=== PATIENT | female | born 1930 | race Caucasian/White ===

== ENCOUNTER 2017-04-20 12:30 | Inpatient (IN) | payer MEDICARE, MEDICAID ==
[2017-04-20 12:35] VITALS: BMI 16.8
--- NOTE | 2017-04-20 12:53 | CT ---
PROCEDURE: CT HEAD WITHOUT CONTRAST. HISTORY: Code Stroke COMPARISON: None available. TECHNIQUE: Axial computed tomography images were obtained through the head/brain without intravenous contrast. Radiation dose: Total exam DLP = 823.33 mGy-cm. This CT exam was performed using one or more of the following dose reduction techniques: Automated exposure control, adjustment of the mA and/or kV according to patient size, and/or use of iterative reconstruction technique. FINDINGS: HEMORRHAGE: No intracranial hemorrhage. BRAIN: No mass effect or edema. Mild diffuse age-appropriate cerebral atrophy. VENTRICLES: Unremarkable. No hydrocephalus. CALVARIUM: Unremarkable. PARANASAL SINUSES: Unremarkable as visualized. No significant inflammatory changes. MASTOID AIR CELLS: Unremarkable as visualized. No inflammatory changes. OTHER FINDINGS: None. IMPRESSION: Normal CT of the Head. No evidence of acute infarct. No intracranial hemorrhage. No intracranial mass. The results of this examination was discussed, by telephone, with Dr. Walsh at 12:47 p.m. on 04/20/2017.
[2017-04-20] MEDS ORDERED: Sodium Chloride 0.9% 1,000 ML IV ONE (13:02)
[2017-04-20] MEDS ORDERED: Piperacillin/Tazobact 3.375 gm 100 ML IVPB STA (13:02)
[2017-04-20 13:12] LABS: VENOUS BLOOD GAS BASE EXCESS 1.2 mmol/L (0.0-2.0); VENOUS BLOOD GAS PCO2 44 mmHg (40-60); VENOUS BLOOD PH 7.39 (7.32-7.43)
[2017-04-20] MEDS ORDERED: Sodium Chloride 0.9% 1,000 ML ONE ×2 (13:16→19:11)
[2017-04-20 13:25] LABS: BASO % 0.3 % (0.0-2.0); EOS % 0.2 % (0.0-4.0); HEMATOCRIT 35.3 % (34.0-47.0); LYMPH # 0.6 K/uL (1.0-4.3); LYMPH % 5.2 % (20.0-40.0); MEAN CELL VOLUME 92.5 fL (81.0-99.0); MEAN CORPUSCULAR HEMOGLOBIN 30.3 pg (27.0-31.0); MEAN CORPUSCULAR HGB CONC 32.8 g/dL (33.0-37.0); MEAN PLATELET VOLUME 7.9 fL (7.2-11.7); MONO # 0.5 K/uL (0.0-0.8); MONO % 4.5 % (0.0-10.0); PLATELET COUNT 356 K/uL (130-400); RED CELL DISTRIBUTION WIDTH 15.1 % (11.5-14.5); WHITE BLOOD COUNT 11.2 K/uL (4.8-10.8)
--- NOTE | 2017-04-20 13:25 | C.PDOC ---
History Of Present Illness 86 y/o female brought to ED by EMS for incomprehensible speech and falling from bed. As per Daughter at 7am patient was given thyroid medicine and was "fine" but at 11am patient was found faced down on floor and was only able to tell " she wanted to go to the bathroom and legs lost strength". Daughter reports patient's speech became incomprehensible and brought to ED for further evaluation. Upon arrival and evaluation code stroke was activated. No other complaints at this time. Time Seen by Provider: 04/20/17 12:34 Chief Complaint (Nursing): Altered Mental Status History Per: Family (Daughter) History/Exam Limitations: Clinical Condition, Language Barrier Onset/Duration Of Symptoms: Mins Onset Of Symptoms: <3 Hours Current Symptoms Are (Timing): Still Present Past Medical History Reviewed: Historical Data, Nursing Documentation, Vital Signs Vital Signs: Last Vital Signs Temp 97.6 F 04/25/17 16:00 Pulse 86 04/25/17 16:00 Resp 18 04/25/17 16:00 BP 129/73 04/25/17 16:00 Pulse Ox 96 04/27/17 12:39 - Medical History PMH: COPD, Gastritis, Osteoporosis Surgical History: Cholecystectomy - [facility] Procedures NEBULIZER THERAPY (04/18/15) Family History: States: Unknown Family Hx - Social History Hx Alcohol Use: No Hx Substance Use: No Physical Exam - Physical Exam Appears: Well, No Acute Distress Skin: Normal Color, Warm, Dry Eye(s): bilateral: Normal Inspection, PERRL, EOMI Nose: Normal Throat: Normal Neck: Normal Cardiovascular: Rhythm Regular Respiratory: Normal Breath Sounds Gastrointestinal/Abdominal: Normal Exam Back: Normal Inspection Extremity: Normal ROM Neurological/Psych: Normal Speech, Normal Cognition, Normal Cranial Nerves, Other ((+)moving all extremities (+)mildly confused) ED Course And Treatment - Laboratory Results Result Diagrams: 04/25/17 06:55 04/25/17 06:55 ECG: Interpreted By Me, Viewed By Me ECG Rhythm: Sinus Tachycardia Rate From EC (bpm) O2 Sat by Pulse Oximetry: 96 (RA) Pulse Ox Interpretation: Normal NIHSS Stroke Scale - Date/Time Evaluation Performed Date Performed: 04/20/17 Time Performed: 18:43 When Was NIHSS Performed: Baseline - How Severe is the Stoke Level of Consciousness: 1=Drowsy LOC to Questions: 0=Both comments correct LOC to commands: 0=Obeys both correctly Best Gaze: 0=Normal Visual: 0=No visual loss Facial: 0=Normal Motor Arm - Left: 0=No drift Motor Arm - Right: 0=No drift Motor Leg - Left: 0=No drift Motor Leg - Right: 0=No drift Limb Ataxia: 0=Absent Sensory: 0=Normal Best Language: 1=Mild to moderate aphasia Dysarthia: 0=Normal articulation Extinction & Inattention (Neglect): 0=Normal, no object Score: 2 Severity Of Stroke: 1-4= Minor Stroke rTPA Inclusion/Exclusion - Refusal of Treatment Patient Refused Treatment: No - Inclusion Criteria for Altepase Patient is 18 years or Older: Yes Clinical DX Ischemic Stroke Cause Neurological Deficit: No Time of Onset Established Less Than 270 Mins Before TX Begin: Yes Risk/Benefit Discussed With Patient/Family Member Present: Yes Medical Decision Making Medical Decision Making: code stroke/ams- r/o intrcranial/stroke/sepsis- labs imaging pending case discussed with dr cronin sap functional analyst neurology. advises not tpa candidate. inital ekg concerning for aflutter. cardizem given with improvement of rate. case discussed with dr qureshi. requests lovenox. case discussed with dr tian. accepts for admission. Disposition - Disposition Disposition: HOSPITALIZED Disposition Time: 04:00 Condition: FAIR - Clinical Impression Clinical Impression: Atrial flutter, UTI (urinary tract infection), Altered mental status - Scribe Statement The provider has reviewed the documentation as recorded by the Scribe Goznalez Burden All medical record entries made by the Scribe were at my direction and personally dictated by me. I have reviewed the chart and agree that the record accurately reflects my personal performance of the history, physical exam, medical decision making, and the department course for this patient. I have also personally directed, reviewed, and agree with the discharge instructions and disposition. Decision To Admit - Pt Status Changed To: Hospital Disposition Of: Inpatient - Admit Certification Admit to Inpatient:: After my assessment, the patient will require hospitalization for at least two midnights. This is because of the severity of symptoms shown, intensity of services needed, and/or the medical risk in this patient being treated as an outpatient. - InPatient: Physician Admission Certification:: aflutter, needs lovenox, ams, needs antibitoics - . Bed Request Type: Telemetry Admitting Physician: Abbie Richards Patient Diagnosis: Atrial flutter, UTI (urinary tract infection), Altered mental status
[2017-04-20 13:29] LABS: INR 1.2
[2017-04-20 13:33] LABS: ALKALINE PHOSPHATASE 88 U/L (38-126); ALT/SGPT 16 U/L (9-52); AST/SGOT 27 U/L (14-36); BILIRUBIN,TOTAL 0.7 mg/dL (0.2-1.3); BLOOD UREA NITROGEN 17 mg/dL (7-17); CALCIUM 9.8 mg/dl (8.6-10.4); CARBON DIOXIDE 26 mmol/L (22-30); CHLORIDE 101 mmol/L (98-107); CHOLESTEROL 124 mg/dL (0-199); GFR AFRICAN-AMERICAN > 60; GLUCOSE,RANDOM 90 mg/dL (65-105); POTASSIUM 4.4 mmol/L (3.6-5.2); SODIUM 139 mmol/L (132-148); TOTAL PROTEIN 8.9 g/dL (6.3-8.3)
[2017-04-20 13:36] LABS: ALB/GLOB RATIO 0.9 (1.0-2.1)
[2017-04-20 13:50] LABS: NEUTROPHIL 84 % (50-75); TOTAL CELLS COUNTED 100
--- NOTE | 2017-04-20 14:08 | RAD ---
HISTORY: code stroke COMPARISON: No prior. FINDINGS: LUNGS: Extensive diffuse interstitial infiltrate common nonspecific. Sahara consolidation in right apex. The possible pneumonia. Cannot rule out neoplasm. Followup advised. PLEURA: No significant pleural effusion identified, no pneumothorax apparent. CARDIOVASCULAR: Normal. OSSEOUS STRUCTURES: No significant abnormalities. VISUALIZED UPPER ABDOMEN: Normal. OTHER FINDINGS: None. IMPRESSION: Extensive diffuse interstitial infiltrate with sahara consolidation in right apex common nonspecific. Consider correlation with chest CT examination.
[2017-04-20 14:11] LABS: RBC URINE 38 /hpf (0-3); URINE BILIRUBIN NEGATIVE (NEGATIVE); URINE BLOOD 3+ (NEGATIVE); URINE COLOR Yellow (YELLOW); URINE GLUCOSE (UA) NORMAL (Normal); URINE KETONE TRACE mg/dL (NEGATIVE); URINE LEUKOCYTE ESTERASE 3+ Leu/uL (Negative); URINE PROTEIN 1+ mg/dL (NEGATIVE); URINE UROBILINOGEN NORMAL mg/dL (0.2-1.0); WBC URINE 179 /hpf (0-5)
[2017-04-20] MEDS ORDERED: Piperacillin/Tazobact 3.375 gm 100 ML IVPB ONE ×3 (14:16→20:08)
[2017-04-20] MEDS ORDERED: Vancomycin 1 GM 1 GM/250 ML BAG IVPB ONE (14:50)
[2017-04-20] MEDS ORDERED: Iohexol 350mg/ml 100 ML ONE (15:54)
--- NOTE | 2017-04-20 16:56 | CT ---
PROCEDURE: CT Chest, Abdomen and Pelvis without intravenous contrast HISTORY: Cough and abdominal pain. COMPARISON: None. TECHNIQUE: Unenhanced study. Neither oral nor intravenous contrast administered. Sensitivity and specificity for acute inflammatory processes limited by the absence of oral and intravenous contrast. Radiation dose: Total exam DLP = 264.70 mGy-cm. This CT exam was performed using one or more of the following dose reduction techniques: Automated exposure control, adjustment of the mA and/or kV according to patient size, and/or use of iterative reconstruction technique. FINDINGS: CT CHEST WITHOUT CONTRAST: LUNGS: Interstitial lung disease primarily honeycomb pattern, diffuse and moderate in degree. Mass lesion anterior segment left upper lobe 3.4 x 5.2 cm. Adjacent masslike density extending towards the right hilum ill-defined without tissue border it from the adjacent main pulmonary artery. This constellation of findings likely represents neoplasm. Adjacent to the right upper lobe mass are pulmonary parenchymal findings alveolar likely pneumonitis. No evidence of postobstructive pneumonitis, of segmental and subsegmental bronchi are clear. MEDIASTINUM: Unremarkable. Normal caliber aorta and pulmonary arterial trunk. Normal size heart. LYMPH NODES: Adenopathy in the right hilum and mediastinum difficult characterize in the absence of intravenous contrast. PLEURA: Unremarkable. No pneumothorax. No pleural fluid. BONES: Unremarkable. OTHER FINDINGS: None. CT ABDOMEN AND PELVIS: LIVER: Unremarkable. No gross lesion or ductal dilatation. GALLBLADDER AND BILE DUCTS: Status post cholecystectomy. No abnormality is seen in the gallbladder fossa. PANCREAS: Unremarkable. No gross lesion or ductal dilatation. SPLEEN: Unremarkable. ADRENALS: Unremarkable. No mass. KIDNEYS AND URETERS: Right hydronephrosis, hydroureter. The distal course of the right ureter is difficult to follow, there is no distal ureteral or urinary bladder wall abnormality to account for this finding. Left kidney in ureter: Punctate nonobstructing left renal calculi. Left ureter normal in caliber and course. VASCULATURE: Calcified nonaneurysmal abdominal aorta. BOWEL: Unremarkable. No obstruction. No gross mural thickening. APPENDIX: Normal appendix. PERITONEUM: Unremarkable. No free fluid. No free air. LYMPH NODES: Unremarkable. No enlarged lymph nodes. BLADDER: Markedly distended. Dependent bladder calculus 13 x 15 mm. REPRODUCTIVE: Surgically absent uterus. Dystrophic calcifications in the cervix. . BONES: No acute fracture. Grade 2 anterolisthesis L5-S1. Associated spondylolysis. OTHER FINDINGS: None. IMPRESSION: 1. Solid mass right upper lobe. 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 Separate tumor burden in the right hilum and mediastinum difficult to further characterize in the absence of intravenous contrast. 2. Right upper lobe pneumonitis. 3. Moderate -severe interstitial lung disease primarily honeycombing. Underlying findings suggestive of bronchiectasis also identified. 4. Unilateral, right hydronephrosis, hydroureter. Markedly distended urinary bladder with solitary intraluminal bladder calculus. Additional benign and/or incidental findings described above.
[2017-04-20] MEDS ORDERED: Enoxaparin 150 mg Syringe SC STA (17:07)
[2017-04-20] MEDS ORDERED: Enoxaparin 60 mg Syringe SC STA (17:36)
[2017-04-20] MEDS: Sodium Chloride 0.45% 1,000 ML IV SCH (19:17)
[2017-04-20 20:32] LABS: T4 11.6 ug/dL (5.5-11.0)
--- NOTE | 2017-04-20 20:35 | CP.PCM.HP ---
<Homa Mcneal - Last Filed: 04/20/17 20:56> History of Present Illness - History of Present Illness History of Present Illness: HPI: Patient is an 86F with PMH of pulmonary fibrosis, lupus, and osteoporosis who presented to the ED with her daughter, Yaima, for AMS. History was obtained by Yaima. She says she found the patient this morning at 11:45 on the floor of their home, weak and diaphoretic. Patient was awake and alert but confused and asking to be helped to the bathroom because she needed to urinate. Patient's daughter says the patient has been having to go more frequently. Patient can usually ambulate without assistance per her daughter but she was unable to get herself to the bathroom without help. After this the daughter laid her in bed and said she began talking nonsense. She brought her to the ED when this happened and said since then her mother has improved about 80%. Patient's daughter says she only received 2 medications today. One was her levothyroxine and the other was flexeril. Patient received the flexeril after recent ER visit for b/l shoulder pain. The daughter gave it this morning because her mother was complaining of right flank/back pain. Patient admits to sore throat with cough productive of white phlegm which is not new to her 2/2 pulomary fibrosis. Patient also admits to back and joint pain due to osteoporosis. Patient sees her primary care doctor (Dr. Joe Mooney) monthly and has noted a weight loss of 3lbs/month recently as well as decreased appetite. Patient is currently having difficulty swallowing. Patient denies fever, chills, headache, dizziness, change in vision, abdominal pain, nausea, vomiting, diarrhea, blood in urine or stool, dysuria, leg swelling, recent illness or travel, or sick contacts. PMH: pulmonary fibrosis, lupus, osteoporosis, hypothyroidism Meds: * cyclobenzaprine 10 mg PO TID PRN * Levothyroxine 100 mcg PO QD * Memantine 10 mg PO BID * Hydroxycholorquine 200 mg PO QD * Folic acid 1 mg QD PSH: Cholecystectomy Allergies: NKDA FamHx: denies SocHx: Former smoker (2 pk/wk x30 yrs), denies alcohol and drug use Present on Admission - Present on Admission Any Indicators Present on Admission: No Review of Systems - Review of Systems All systems: reviewed and no additional remarkable complaints except (as per HPI ) Past Patient History - Past Medical History & Family History Past Medical History?: Yes - Past Social History Smoking Status: Former Smoker - CARDIAC Hx Cardiac Disorders: No - PULMONARY Hx Chronic Obstructive Pulmonary Disease (COPD): Yes - NEUROLOGICAL Hx Neurological Disorder: No - HEENT Hx HEENT Problems: No - RENAL Hx Chronic Kidney Disease: No - ENDOCRINE/METABOLIC Hx Endocrine Disorders: No - HEMATOLOGICAL/ONCOLOGICAL Hx Blood Disorders: Yes (SLE) - INTEGUMENTARY Hx Dermatological Problems: No - MUSCULOSKELETAL/RHEUMATOLOGICAL Hx Osteoporosis: Yes - GASTROINTESTINAL Hx Gastritis: Yes - GENITOURINARY/GYNECOLOGICAL Hx Genitourinary Disorders: No - PSYCHIATRIC Hx Substance Use: No - SURGICAL HISTORY Hx Cholecystectomy: Yes - ANESTHESIA Hx Anesthesia: Yes Hx Anesthesia Reactions: No Meds Allergies/Adverse Reactions: Allergies Allergy/AdvReac Type Severity Reaction Status Date / Time No Known Allergies Allergy Verified 04/20/17 12:35 Physical Exam - Constitutional Appears: Non-toxic, No Acute Distress, Cachectic - Head Exam Head Exam: ATRAUMATIC, NORMAL INSPECTION, NORMOCEPHALIC - Eye Exam Eye Exam: EOMI - ENT Exam ENT Exam: Mucous Membranes Moist - Respiratory Exam Respiratory Exam: Clear to Auscultation Bilateral, NORMAL BREATHING PATTERN - Cardiovascular Exam Cardiovascular Exam: REGULAR RHYTHM, +S1, +S2. absent: Bradycardia, Tachycardia , Systolic Murmur - GI/Abdominal Exam GI & Abdominal Exam: Normal Bowel Sounds, Soft, Tenderness (suprapubic and right flank ). absent: Distended - Extremities Exam Extremities exam: Positive for: normal inspection, pedal pulses present. Negative for: pedal edema, tenderness - Back Exam Back exam: CVA tenderness (R). absent: paraspinal tenderness, rash noted, vertebral tenderness - Neurological Exam Neurological exam: Alert, CN II-XII Intact - Psychiatric Exam Psychiatric exam: Normal Affect, Normal Mood - Skin Skin Exam: Dry, Intact, Normal Color, Warm Results - Vital Signs Recent Vital Signs: Last Vital Signs Temp 100.2 F H 04/20/17 13:00 Pulse 105 H 04/20/17 19:32 Resp 22 04/20/17 19:32 BP 149/77 04/20/17 19:32 Pulse Ox 98 04/20/17 19:32 - Labs Result Diagrams: 04/20/17 13:15 04/20/17 13:15 Labs: Laboratory Results - last 24 hr 04/20/17 19:59 NT-Pro-B Natriuret Pep 892 Assessment & Plan - Assessment and Plan (Free Text) Assessment: UTI with Cystolith * Leukocytosis 11.2, 100.2 rectal temp * Consult urology (Dr. Villeda) - recs appreciated * Raines Cath * Zosyn 3.375mg Q6 and Vanco 1g QD started * 1/2 NS @ 100 * F/U BC and UC AMS * Neurology consult (Dr. Mccoy) - recs appreciated * Dysphagia - NPO * F/U MRI brain without contrast * F/U carotid echo Atrial Flutter * Cardiology conult (Dr. Bustillo) * Lovenox 44 mg SC Q12 Hypothyroidism * Holding home med: Levothyroxine 100mcg QD Pulmonary fibrosis * Advair Q12 * Solumedrol 125 x1 and then 40 Q8 PPX * Pepcid 20 mg IV Q12 * Hold home meds 2/2 dysphagia <CalliePeter H - Last Filed: 04/21/17 07:40> Results - Vital Signs Recent Vital Signs: Last Vital Signs Temp 97.5 F L 04/21/17 04:28 Pulse 81 04/21/17 04:28 Resp 20 04/21/17 04:28 BP 96/57 L 04/21/17 04:28 Pulse Ox 97 04/21/17 04:28 - Labs Result Diagrams: 04/21/17 03:01 04/21/17 03:01 Labs: Laboratory Results - last 24 hr 04/20/17 04/20/17 04/20/17 19:59 21:18 21:44 WBC RBC Hgb Hct MCV MCH MCHC RDW Plt Count MPV Neut % (Auto) Lymph % (Auto) Howard % (Auto) Eos % (Auto) Baso % (Auto) Neut # Lymph # Howard # Eos # Baso # Neutrophils % (Manual) Lymphocytes % (Manual) Monocytes % (Manual) Platelet Estimate Sodium Potassium Chloride Carbon Dioxide Anion Gap BUN Creatinine Est GFR ( Amer) Est GFR (Non-Af Amer) POC Glucose (mg/dL) 92 Random Glucose Calcium Total Creatine Kinase 163 H CK-MB (Mass) 1.42 Troponin I, Quant 0.0420 NT-Pro-B Natriuret Pep 892 Triglycerides Cholesterol LDL Cholesterol Direct HDL Cholesterol Thyroxine (T4) 11.6 H TSH 3rd Generation 0.02 L 04/21/17 04/21/17 04/21/17 03:01 03:01 03:01 WBC 17.0 H D RBC 3.35 L Hgb 10.0 L Hct 30.9 L MCV 92.3 MCH 29.9 MCHC 32.4 L RDW 14.8 H Plt Count 259 MPV 7.8 Neut % (Auto) 94.7 H Lymph % (Auto) 3.3 L Howard % (Auto) 1.8 Eos % (Auto) 0.1 Baso % (Auto) 0.1 Neut # 16.1 H Lymph # 0.6 L Howard # 0.3 Eos # 0.0 Baso # 0.0 Neutrophils % (Manual) 92 H Lymphocytes % (Manual) 7 L Monocytes % (Manual) 1 Platelet Estimate Normal Sodium 140 Potassium 3.5 L Chloride 104 Carbon Dioxide 23 Anion Gap 17 BUN 16 Creatinine 0.7 Est GFR ( Amer) > 60 Est GFR (Non-Af Amer) > 60 POC Glucose (mg/dL) Random Glucose 114 H Calcium 8.2 L Total Creatine Kinase 156 H 138 H CK-MB (Mass) 0.62 Troponin I, Quant 0.0510 NT-Pro-B Natriuret Pep Triglycerides 39 D Cholesterol 88 LDL Cholesterol Direct 39 HDL Cholesterol 36 Thyroxine (T4) TSH 3rd Generation 04/21/17 06:23 WBC RBC Hgb Hct MCV MCH MCHC RDW Plt Count MPV Neut % (Auto) Lymph % (Auto) Howard % (Auto) Eos % (Auto) Baso % (Auto) Neut # Lymph # Howard # Eos # Baso # Neutrophils % (Manual) Lymphocytes % (Manual) Monocytes % (Manual) Platelet Estimate Sodium Potassium Chloride Carbon Dioxide Anion Gap BUN Creatinine Est GFR ( Amer) Est GFR (Non-Af Amer) POC Glucose (mg/dL) 125 H Random Glucose Calcium Total Creatine Kinase CK-MB (Mass) Troponin I, Quant NT-Pro-B Natriuret Pep Triglycerides Cholesterol LDL Cholesterol Direct HDL Cholesterol Thyroxine (T4) TSH 3rd Generation Attending/Attestation - Attestation I have personally seen and examined this patient.: Yes I have fully participated in the care of the patient.: Yes I have reviewed all pertinent clinical information: Yes Notes (Text): Medical attending: Patient was seen and examined by me. Agree with the above note by the resident The patient's family member was present at bedside and helped us with the events. As reported above in the medical technologist hematology note, the patient was noted to be found on the ground with weakness. On arrival in the ER a code stroke was called and a CT scan was done. This CT did not show any acute bleeding. She was found to have a rapid HR which was felt to be atrial flutter/fib and cardizem was given for rate control. ER had spoken with cardiology. There are orders for lovenox SC BID already written before we had arrived as it is possible that she had a thromboembolic event. An echo and carotid has been ordered. Also MRI as well. On exam patient HR had improved. She was awake and alert and answering questions slowly however appearing weak. She also looked dry on our exam. She was able to stick her tounge at me, squeeze my hands, raise both arm and legs for greater than 5 seconds. However she did not follow commands to move her eyes or try to make a smile. She was found to have a UA that suggested a UTI. She has been started on IVF. The CT scan showed a very distended bladders, as well as hydronephrosis over the right kidney. There appears to be a stone also in the bladder as well. The family did report she had flank pain earlier in the day. CT scan had been done and showed also a large right lung perhilar mass which was reported as suspicious of a malignancy. Per review of previous notes from the past - other physicians had been worried if she could have had TB and she was worked up for this with a negative quanterferon gold and also with 3 consequtively negative stains and then cultures of AFB. I explained this to the family that for tonight and tommorow we would have to treat the UTI as well as see if she had a CVA or not. Then in following next days will be better able to assess this finding that is suspicious for malignancy. There is also a history of extensive history of pulmonary fibrosis as well. The family knows she takes breathing medication however they don't readily have it with them. Will start on solumedrol IV as well as Advair 250/50. For now try to avoid beta agonist inhalers/nebulizers due to the fast HR thank you Faizan Ledesma
[2017-04-20 20:46] LABS: THYROID STIMULATING HORMONE 0.02 mIU/L (0.46-4.68)
[2017-04-20] MEDS: Enoxaparin 60 mg Syringe SC SCH (22:24)
[2017-04-21] MEDS: Piperacill/Tazo 3.375gm in Dex 3.375 GM/50 ML BAG IVPB SCH ×4 (01:15→20:38)
[2017-04-21 03:07] LABS: BASO % 0.1 % (0.0-2.0); EOS % 0.1 % (0.0-4.0); HEMATOCRIT 30.9 % (34.0-47.0); LYMPH # 0.6 K/uL (1.0-4.3); LYMPH % 3.3 % (20.0-40.0); MEAN CELL VOLUME 92.3 fL (81.0-99.0); MEAN CORPUSCULAR HEMOGLOBIN 29.9 pg (27.0-31.0); MEAN CORPUSCULAR HGB CONC 32.4 g/dL (33.0-37.0); MEAN PLATELET VOLUME 7.8 fL (7.2-11.7); MONO # 0.3 K/uL (0.0-0.8); MONO % 1.8 % (0.0-10.0); PLATELET COUNT 259 K/uL (130-400); RED CELL DISTRIBUTION WIDTH 14.8 % (11.5-14.5)
[2017-04-21 03:16] LABS: BLOOD UREA NITROGEN 16 mg/dL (7-17); CALCIUM 8.2 mg/dl (8.6-10.4); CARBON DIOXIDE 23 mmol/L (22-30); CHLORIDE 104 mmol/L (98-107); CHOLESTEROL 88 mg/dL (0-199); GFR AFRICAN-AMERICAN > 60; GLUCOSE,RANDOM 114 mg/dL (65-105); POTASSIUM 3.5 mmol/L (3.6-5.2); SODIUM 140 mmol/L (132-148)
[2017-04-21 04:27] LABS: NEUTROPHIL 92 % (50-75); TOTAL CELLS COUNTED 100
[2017-04-21] MEDS: Sodium Chloride 0.45% 1,000 ML IV SCH ×2 (05:16→15:47)
[2017-04-21] MEDS ORDERED: Pantoprazole 40 mg EC Tab PO SCH (10:00)
[2017-04-21] MEDS: Enoxaparin 60 mg Syringe SC SCH ×2 (10:41→21:55)
[2017-04-21] MEDS: Fluticasone-Salmeterol 250-50mcg Diskus INH SCH ×2 (13:22→19:52)
--- NOTE | 2017-04-21 14:02 | MRI ---
PROCEDURE: MRI BRAIN WITHOUT CONTRAST HISTORY: alter mental status, patient has tacycarida, COMPARISON: Comparison is made to the previous CT dated 04/20/2017 TECHNIQUE: Multiplanar, multisequence MR images of the brain were obtained without intravenous contrast enhancement. FINDINGS: Study is somewhat limited due to patient's motion. HEMORRHAGE: None DWI: No evidence of an acute or early subacute infarction. BRAIN PARENCHYMA: No mass effect or edema. Mild volume loss is noted. There are few scattered nonspecific periventricular and subcortical white matter foci of hyperintense T2 and FLAIR signal may be related to chronic microvascular ischemic disease. VENTRICLES: Unremarkable. No hydrocephalus. CRANIUM: Unremarkable. ORBITS: Grossly unremarkable. PARANASAL SINUSES/MASTOIDS: Clear VASCULAR SYSTEM: Skull base flow voids intact. OTHER FINDINGS: None. IMPRESSION: Somewhat limited study due to patient's motion. No evidence of acute intracranial hemorrhage mass effect or midline shift. No evidence of acute or subacute infarction. Mild volume loss.
--- NOTE | 2017-04-21 14:18 | CP.PCM.PN ---
Subjective - Date & Time of Evaluation Date of Evaluation: 04/21/17 Time of Evaluation: 13:00 - Subjective Subjective: Patient was seen and examined by me. Family members present She appears FAR more awake and alert today. She is able to answer questions and is now able to swallow safely. This is a big change from yesterday. When I saw her yesterday in the ER she was somnulent, confused, and not following all commands. Today all commands followed and also on exam we had her stand and walk with us and she was able to do so without difficulty. We changed her to heart heathly diet. She also had an MRI, still pending echo and carotid studies. It seems her alter mental status was/is from infection as the patient does have pre-liminary gram negative rods in two blood cultures as well as in the urine. We stopped the vancomycin and then added on Primaxin with the Zosyn she was already. I realize this is not a common combination so later when sensitivities return probably can stop the Zosyn. Continue with the IVF, she does not look as dehydrated today as yesterday Objective - Vital Signs/Intake and Output Vital Signs (last 24 hours): Temp Pulse Resp BP Pulse Ox 97.2 F L 74 20 113/64 97 04/21/17 10:28 04/21/17 10:28 04/21/17 10:28 04/21/17 10:28 04/21/17 10:28 Intake and Output: 04/21/17 04/21/17 06:59 18:59 Intake Total 1250 Output Total 800 Balance 450 - Medications Medications: Current Medications Enoxaparin Sodium (Lovenox) 44 mg SC Q12 [facility] Last Admin: 04/21/17 10:41 Dose: 44 mg Famotidine (Pepcid) 20 mg IVP Q12 [facility] Last Admin: 04/21/17 10:40 Dose: 20 mg Sodium Chloride (Sodium Chloride 0.45%) 1,000 mls @ 100 mls/hr IV .Q10H [facility] Last Admin: 04/21/17 05:16 Dose: 100 mls/hr Piperacillin Sod/Tazobactam Sod (Zosyn 3.375 Gm Iv Premix) 3.375 gm in 50 mls @ 100 mls/hr IVPB Q6H [facility] Last Admin: 04/21/17 08:15 Dose: 100 mls/hr Imipenem/Cilastatin Sodium 500 (mg/ Sodium Chloride) 100 mls @ 100 mls/hr IVPB Q6H [facility] Last Admin: 04/21/17 10:41 Dose: 100 mls/hr Methylprednisolone (Solu-Medrol) 40 mg IV Q8 [facility] Last Admin: 04/21/17 05:10 Dose: 40 mg Fluticasone/Salmeterol (Advair Diskus 250/50) 1 puff INH RQ12 [facility] Last Admin: 04/21/17 13:22 Dose: Not Given - Labs Labs: 04/21/17 03:01 04/21/17 03:01 PT 13.2 SECONDS (9.7-12.2) H 04/20/17 13:15 INR 1.2 04/20/17 13:15 APTT 33 SECONDS (21-34) 04/20/17 13:15 - Constitutional Appears: Well, No Acute Distress - Head Exam Head Exam: NORMAL INSPECTION, NORMOCEPHALIC - Eye Exam Eye Exam: EOMI, Normal appearance - ENT Exam ENT Exam: Mucous Membranes Moist - Respiratory Exam Respiratory Exam: Clear to Ausculation Bilateral, NORMAL BREATHING PATTERN - Cardiovascular Exam Cardiovascular Exam: REGULAR RHYTHM - GI/Abdominal Exam GI & Abdominal Exam: Soft, Normal Bowel Sounds - Neurological Exam Neurological Exam: Alert, Awake, Oriented x3 Neuro motor strength exam: Left Upper Extremity: 5, Right Upper Extremity: 5, Left Lower Extremity: 5, Right Lower Extremity: 5 - Skin Skin Exam: Normal Color, Warm Assessment and Plan - Assessment and Plan (Free Text) Assessment: UTI and hydronephrosis - suspect she just passed a stone 04/21: Urine culture is prelimanry gram negative growth. Changed IV abx to also include Primaxin IV Q6hrs. Her bladder showed a lot of urinary retention yesterday and a follow was started. * Consult urology (Dr. Villeda) - recs appreciated * Raines Cath * 1/2 NS @ 100 * F/U BC and UC AMS - likey from urosepsis 04/21: Per family now back to her baseline mental state. She is awake, alert, following all commands. On exam was able to stand and walk. She had MRI this morning. Pending Echo * Neurology consult (Dr. Mccoy) - recs appreciated * F/U MRI brain without contrast * F/U carotid echo Atrial Flutter/atrial fibrillation * Cardiology conult (Dr. Bustillo) * Lovenox 44 mg SC Q12 Hypothyroidism 04/21: TSH very low, may represent hyper thyroid or overmedication. Recheck TSH again and T3 and T4 * Holding home med: Levothyroxine 100mcg QD Pulmonary fibrosis 04/21: Will decrease solumedrol to 40 BID * Advair Q12 * Solumedrol 125 x1 and then 40 Q8 PPX * Pepcid 20 mg IV Q12
--- NOTE | 2017-04-21 15:47 | CP.PCM.CON ---
History of Present Illness - History of Present Illness History of Present Illness: Mrs. Clements is an 86-year-old woman with a pertinent past medical history of baseline dementia, who now presents with a UTI and changes in mental status that were noted by her daughter. She improved somewhat by the time she was brought to the ED. Today, the patient has no complaints, but continues to have some confusion (which may be her baseline). MRI of the brain was done and did not show any acute findings. Review of Systems - Review of Systems All systems: reviewed and no additional remarkable complaints except Past Patient History - Past Medical History & Family History Past Medical History?: Yes - Past Social History Smoking Status: Former Smoker - CARDIAC Hx Cardiac Disorders: No - PULMONARY Hx Chronic Obstructive Pulmonary Disease (COPD): Yes - NEUROLOGICAL Hx Neurological Disorder: No - HEENT Hx HEENT Problems: No - RENAL Hx Chronic Kidney Disease: No - ENDOCRINE/METABOLIC Hx Endocrine Disorders: No - HEMATOLOGICAL/ONCOLOGICAL Hx Blood Disorders: Yes (SLE) - INTEGUMENTARY Hx Dermatological Problems: No - MUSCULOSKELETAL/RHEUMATOLOGICAL Hx Osteoporosis: Yes - GASTROINTESTINAL Hx Gastritis: Yes - GENITOURINARY/GYNECOLOGICAL Hx Genitourinary Disorders: No - PSYCHIATRIC Hx Substance Use: No - SURGICAL HISTORY Hx Cholecystectomy: Yes - ANESTHESIA Hx Anesthesia: Yes Hx Anesthesia Reactions: No Meds Allergies/Adverse Reactions: Allergies Allergy/AdvReac Type Severity Reaction Status Date / Time No Known Allergies Allergy Verified 04/20/17 12:35 - Medications Medications: Current Medications Enoxaparin Sodium (Lovenox) 44 mg SC Q12 [facility] Last Admin: 04/21/17 10:41 Dose: 44 mg Famotidine (Pepcid) 20 mg IVP Q12 [facility] Last Admin: 04/21/17 10:40 Dose: 20 mg Sodium Chloride (Sodium Chloride 0.45%) 1,000 mls @ 100 mls/hr IV .Q10H [facility] Last Admin: 04/21/17 05:16 Dose: 100 mls/hr Piperacillin Sod/Tazobactam Sod (Zosyn 3.375 Gm Iv Premix) 3.375 gm in 50 mls @ 100 mls/hr IVPB Q6H [facility] Last Admin: 04/21/17 14:35 Dose: 100 mls/hr Imipenem/Cilastatin Sodium 500 (mg/ Sodium Chloride) 100 mls @ 100 mls/hr IVPB Q6H [facility] Last Admin: 04/21/17 10:41 Dose: 100 mls/hr Methylprednisolone (Solu-Medrol) 40 mg IV Q8 [facility] Last Admin: 04/21/17 14:34 Dose: 40 mg Fluticasone/Salmeterol (Advair Diskus 250/50) 1 puff INH RQ12 [facility] Last Admin: 04/21/17 13:22 Dose: Not Given Physical Exam - Constitutional Appears: Well - Head Exam Head Exam: ATRAUMATIC, NORMAL INSPECTION, NORMOCEPHALIC - Eye Exam Eye Exam: EOMI, Normal appearance, PERRL - ENT Exam ENT Exam: Mucous Membranes Moist, Normal Exam - Neck Exam Neck exam: Positive for: Normal Inspection - Respiratory Exam Respiratory Exam: Clear to Auscultation Bilateral, NORMAL BREATHING PATTERN - Cardiovascular Exam Cardiovascular Exam: REGULAR RHYTHM, +S1, +S2 - GI/Abdominal Exam GI & Abdominal Exam: Normal Bowel Sounds, Soft. absent: Tenderness - Rectal Exam Rectal Exam: Deferred - Extremities Exam Extremities exam: Positive for: normal inspection - Back Exam Back exam: NORMAL INSPECTION - Neurological Exam Neurological exam: Alert, CN II-XII Intact, Normal Gait, Reflexes Normal Additional comments: Oriented to person and place, but not time. Has some insight into her memory deficits. Follows commands appropriately with no focal deficits. - Psychiatric Exam Psychiatric exam: Normal Affect, Normal Mood - Skin Skin Exam: Dry, Intact, Normal Color, Warm Results - Vital Signs Recent Vital Signs: Last Vital Signs Temp 97.2 F L 04/21/17 10:28 Pulse 86 04/21/17 13:15 Resp 20 04/21/17 10:28 BP 113/64 04/21/17 10:28 Pulse Ox 97 04/21/17 10:28 - Labs Result Diagrams: 04/21/17 03:01 04/21/17 03:01 Labs: Laboratory Results - last 24 hr 04/20/17 04/20/17 04/20/17 19:59 21:18 21:44 WBC RBC Hgb Hct MCV MCH MCHC RDW Plt Count MPV Neut % (Auto) Lymph % (Auto) [place] % (Auto) Eos % (Auto) Baso % (Auto) Neut # Lymph # [place] # Eos # Baso # Neutrophils % (Manual) Lymphocytes % (Manual) Monocytes % (Manual) Platelet Estimate Sodium Potassium Chloride Carbon Dioxide Anion Gap BUN Creatinine Est GFR ( Amer) Est GFR (Non-Af Amer) POC Glucose (mg/dL) 92 Random Glucose Calcium Total Creatine Kinase 163 H CK-MB (Mass) 1.42 Troponin I, Quant 0.0420 NT-Pro-B Natriuret Pep 892 Triglycerides Cholesterol LDL Cholesterol Direct HDL Cholesterol Thyroxine (T4) 11.6 H TSH 3rd Generation 0.02 L 04/21/17 04/21/17 04/21/17 03:01 03:01 03:01 WBC 17.0 H D RBC 3.35 L Hgb 10.0 L Hct 30.9 L MCV 92.3 MCH 29.9 MCHC 32.4 L RDW 14.8 H Plt Count 259 MPV 7.8 Neut % (Auto) 94.7 H Lymph % (Auto) 3.3 L [place] % (Auto) 1.8 Eos % (Auto) 0.1 Baso % (Auto) 0.1 Neut # 16.1 H Lymph # 0.6 L [place] # 0.3 Eos # 0.0 Baso # 0.0 Neutrophils % (Manual) 92 H Lymphocytes % (Manual) 7 L Monocytes % (Manual) 1 Platelet Estimate Normal Sodium 140 Potassium 3.5 L Chloride 104 Carbon Dioxide 23 Anion Gap 17 BUN 16 Creatinine 0.7 Est GFR ( Amer) > 60 Est GFR (Non-Af Amer) > 60 POC Glucose (mg/dL) Random Glucose 114 H Calcium 8.2 L Total Creatine Kinase 156 H 138 H CK-MB (Mass) 0.62 Troponin I, Quant 0.0510 NT-Pro-B Natriuret Pep Triglycerides 39 D Cholesterol 88 LDL Cholesterol Direct 39 HDL Cholesterol 36 Thyroxine (T4) TSH 3rd Generation 04/21/17 04/21/17 06:23 12:16 WBC RBC Hgb Hct MCV MCH MCHC RDW Plt Count MPV Neut % (Auto) Lymph % (Auto) [place] % (Auto) Eos % (Auto) Baso % (Auto) Neut # Lymph # [place] # Eos # Baso # Neutrophils % (Manual) Lymphocytes % (Manual) Monocytes % (Manual) Platelet Estimate Sodium Potassium Chloride Carbon Dioxide Anion Gap BUN Creatinine Est GFR ( Amer) Est GFR (Non-Af Amer) POC Glucose (mg/dL) 125 H 144 H Random Glucose Calcium Total Creatine Kinase CK-MB (Mass) Troponin I, Quant NT-Pro-B Natriuret Pep Triglycerides Cholesterol LDL Cholesterol Direct HDL Cholesterol Thyroxine (T4) TSH 3rd Generation Assessment & Plan (1) Toxic metabolic encephalopathy Assessment and Plan: Continue treatment of the underlying cause per the primary team and provide adequate hydration with NS. No further recommendations from a neurological standpoint. Thank you. Status: Acute Priority: Medium
[2017-04-22] MEDS: Piperacill/Tazo 3.375gm in Dex 3.375 GM/50 ML BAG IVPB SCH ×2 (01:25→07:32)
[2017-04-22] MEDS: Sodium Chloride 0.45% 1,000 ML IV SCH ×2 (01:26→21:27)
--- NOTE | 2017-04-22 05:48 | CON ---
REASON FOR CONSULTATION: Atrial flutter. HISTORY OF PRESENT ILLNESS: The patient is 86 years old female who is a former smoker, has a history of pulmonary fibrosis, but not on nasal O2 at home. She was admitted because of fall from bed and incomprehensible speech according to the daughter. The patient has no history of prior stroke in the past and she has a history of hypothyroidism, but the daughter is not aware of any cardiac arrhythmia. In the ER, the patient initial EKG was sinus, subsequently one revealed atrial flutter with 2:1 conduction and the patient received IV Cardizem. The patient denies any chest pain at this time. SOCIAL HISTORY: The patient is a former smoker. MEDICATIONS: Home medications include Synthroid 100 mcg once a day, Plaquenil 200 mg daily, Namenda 10 mg once a day, folic acid 1 mg once a day, Advair inhaler twice a day. REVIEW OF SYSTEMS: No fever or chills. No vomiting or diarrhea. No hemoptysis. The daughter has reported significant loss of weight. PHYSICAL EXAMINATION: GENERAL: The patient is an elderly female who appears emaciated in no apparent respiratory distress. VITAL SIGNS: Blood pressure 115/64, heart rate 74, temperature 97.2 and respirations 20. HEENT: Staring look. NECK: No JVD. CHEST: Bilateral rhonchi and minimal dry crepitations. HEART: S1 and S2 regular. ABDOMEN: Soft. EXTREMITIES: Significant loss of wasting. LABORATORY DATA: SMA-7: Sodium 140, potassium 3.5, chloride 104, CO2 of 23, glucose 114, BUN 16 and creatinine 0.7. Two sets of troponins are negative. Lipid profile is within normal limits. T4 is 11.6. TSH level is below normal, 0.02. INR is 1.2. Head CT scan without contrast: Normal study, no evidence of acute infarct, no intracranial hemorrhage or mass. Carotid Doppler and brain MRI were performed, the report is still pending. ASSESSMENT: 1. Paroxysmal atrial flutter. 2. Hyperthyroidism. 3. Pulmonary fibrosis. 4. Rule out cerebrovascular accident. RECOMMENDATIONS: Continue current imipenem at 500 mg a day q. 6 hours. Continue therapeutic subcutaneous Lovenox at 40 mg twice a day, Solu-Medrol 40 mg intravenous q. 8 hours, Zosyn at 3.375 g intravenous daily. Discontinue Synthroid and consider endocrinology consult. I did initially start Lopressor 25 mg twice a day; however, I was told by the nurse that the patient did not pass the swallow eval; however, once the patient is cleared for oral medications, beta-ton therapy should be initiated. I will review the echocardiograph study performed today. Prasanna Bustillo MD
[2017-04-22] MEDS: Fluticasone-Salmeterol 250-50mcg Diskus INH SCH ×2 (07:39→19:34)
[2017-04-22 09:42] LABS: HEMATOCRIT 31.5 % (34.0-47.0); LYMPH # 0.6 K/uL (1.0-4.3); LYMPH % 4.5 % (20.0-40.0); MEAN CELL VOLUME 92.9 fL (81.0-99.0); MEAN CORPUSCULAR HEMOGLOBIN 30.2 pg (27.0-31.0); MEAN CORPUSCULAR HGB CONC 32.6 g/dL (33.0-37.0); MEAN PLATELET VOLUME 8.4 fL (7.2-11.7); MONO # 0.1 K/uL (0.0-0.8); MONO % 0.8 % (0.0-10.0); PLATELET COUNT 263 K/uL (130-400); WHITE BLOOD COUNT 13.6 K/uL (4.8-10.8)
[2017-04-22 09:58] LABS: CHLORIDE 105 mmol/L (98-107)
[2017-04-22 09:59] LABS: POTASSIUM 3.2 mmol/L (3.6-5.2); SODIUM 139 mmol/L (132-148)
[2017-04-22 10:01] LABS: AST/SGOT 29 U/L (14-36); BILIRUBIN,TOTAL 0.6 mg/dL (0.2-1.3); CARBON DIOXIDE 22 mmol/L (22-30); GFR AFRICAN-AMERICAN > 60; TOTAL PROTEIN 7.6 g/dL (6.3-8.3)
[2017-04-22 10:02] LABS: ALKALINE PHOSPHATASE 64 U/L (38-126); ALT/SGPT 11 U/L (9-52); BLOOD UREA NITROGEN 21 mg/dL (7-17); CALCIUM 8.3 mg/dl (8.6-10.4); GLUCOSE,RANDOM 176 mg/dL (65-105); MAGNESIUM 1.9 mg/dL (1.6-2.3); PHOSPHOROUS 2.8 mg/dL (2.5-4.5)
[2017-04-22 10:09] LABS: ALB/GLOB RATIO 0.9 (1.0-2.1)
[2017-04-22] MEDS: Enoxaparin 60 mg Syringe SC SCH ×2 (10:24→21:29)
[2017-04-22 11:27] LABS: NEUTROPHIL 90 % (50-75); TOTAL CELLS COUNTED 100
[2017-04-22 11:28] LABS: LARGE PLATELETS PRESENT; PLATELET CLUMPS PRESENT
[2017-04-22] MEDS ORDERED: Potassium Chloride 20 mEq ER Tab PO STA (11:57)
--- NOTE | 2017-04-22 14:35 | CP.PCM.PN ---
Subjective - Date & Time of Evaluation Date of Evaluation: 04/22/17 Time of Evaluation: 14:30 - Subjective Subjective: Progress note. Attending: Dr. Casarez. Pt seen and examined at bedside. No acute distress. No events overnight. Pt being worked up for UTI with bacteremia and lung mass, as well as hydronephrosis. No current complaints. No fevers, chills, vomiting, diarrhea. Objective - Vital Signs/Intake and Output Vital Signs (last 24 hours): Temp Pulse Resp BP Pulse Ox 97.3 F L 71 20 134/65 100 04/22/17 09:54 04/22/17 09:54 04/22/17 09:54 04/22/17 09:54 04/22/17 09:54 Intake and Output: 04/22/17 04/22/17 06:59 18:59 Intake Total 1890 Output Total 1550 Balance 340 - Medications Medications: Current Medications Enoxaparin Sodium (Lovenox) 44 mg SC Q12 [facility] Last Admin: 04/22/17 10:24 Dose: 44 mg Famotidine (Pepcid) 20 mg IVP Q12 [facility] Last Admin: 04/22/17 10:24 Dose: 20 mg Sodium Chloride (Sodium Chloride 0.45%) 1,000 mls @ 100 mls/hr IV .Q10H [facility] Last Admin: 04/22/17 01:26 Dose: 100 mls/hr Piperacillin Sod/Tazobactam Sod (Zosyn 3.375 Gm Iv Premix) 3.375 gm in 50 mls @ 100 mls/hr IVPB Q6H [facility] Last Admin: 04/22/17 07:32 Dose: 100 mls/hr Imipenem/Cilastatin Sodium 500 (mg/ Sodium Chloride) 100 mls @ 100 mls/hr IVPB Q6H [facility] Last Admin: 04/22/17 10:24 Dose: 100 mls/hr Potassium Chloride (Potassium Chloride 20 Meq/100 Ml) 20 meq in 100 mls @ 50 mls/hr IVPB ONCE ONE Stop: 04/22/17 14:59 Last Admin: 04/22/17 12:22 Dose: 50 mls/hr Methylprednisolone (Solu-Medrol) 40 mg IV Q8 [facility] Last Admin: 04/22/17 14:04 Dose: 40 mg Fluticasone/Salmeterol (Advair Diskus 250/50) 1 puff INH RQ12 [facility] Last Admin: 04/22/17 07:39 Dose: 1 puff - Labs Labs: 04/22/17 09:37 04/22/17 09:37 PT 13.2 SECONDS (9.7-12.2) H 04/20/17 13:15 INR 1.2 04/20/17 13:15 APTT 33 SECONDS (21-34) 04/20/17 13:15 - Constitutional Appears: Non-toxic, No Acute Distress - Head Exam Head Exam: ATRAUMATIC, NORMAL INSPECTION, NORMOCEPHALIC - Eye Exam Eye Exam: EOMI - ENT Exam ENT Exam: Mucous Membranes Moist - Neck Exam Neck Exam: Full ROM, Normal Inspection - Respiratory Exam Respiratory Exam: NORMAL BREATHING PATTERN. absent: Respiratory Distress - Cardiovascular Exam Cardiovascular Exam: +S1, +S2 - GI/Abdominal Exam GI & Abdominal Exam: Soft, Normal Bowel Sounds. absent: Tenderness - Extremities Exam Extremities Exam: Full ROM, Normal Inspection - Neurological Exam Neurological Exam: Alert, Awake, Oriented x3 - Psychiatric Exam Psychiatric exam: Normal Affect, Normal Mood - Skin Skin Exam: Dry, Intact, Normal Color, Warm Assessment and Plan - Assessment and Plan (Free Text) Assessment: UTI/urosepsis -pt has positive urine culture growing klebsiella -pt has 2 positive blood cultures with gram negative rods -ID consulted. recs appreciated. -continue imipenem/cilastatin -continue IV zosyn AMS - likey from urosepsis -pt back to baseline mental status -Dr. Mccoy consulted. recs appreciated -MRI shows no acute changes. Mass in lung -CT scan of chest notes mass in lung. -Pulmonary consult. Dr. Ambrose. recs appreciated. Right hydronephrosis -Dr. Villeda consulted. recs appreciated -continue mauricio catheter Atrial Flutter/atrial fibrillation -cardiology consulted. recs appreciated -pt is on lovenox 44 q 12. Hypothyroidism -TSH low, will need recheck in 1 month -holding home medication Pulmonary fibrosis -continue solumedrol 40 IV q 8 hrs -pulm consult. recs appreciated. GI.DVT ppx continue pepcid continue lovenox discussed with Dr. Casarez.
--- NOTE | 2017-04-22 15:24 | CP.PCM.CON ---
History of Present Illness - History of Present Illness History of Present Illness: dictated Past Patient History - Past Medical History & Family History Past Medical History?: Yes - Past Social History Smoking Status: Former Smoker - CARDIAC Hx Cardiac Disorders: No - PULMONARY Hx Chronic Obstructive Pulmonary Disease (COPD): Yes - NEUROLOGICAL Hx Neurological Disorder: No - HEENT Hx HEENT Problems: No - RENAL Hx Chronic Kidney Disease: No - ENDOCRINE/METABOLIC Hx Endocrine Disorders: No - HEMATOLOGICAL/ONCOLOGICAL Hx Blood Disorders: Yes (SLE) - INTEGUMENTARY Hx Dermatological Problems: No - MUSCULOSKELETAL/RHEUMATOLOGICAL Hx Osteoporosis: Yes - GASTROINTESTINAL Hx Gastritis: Yes - GENITOURINARY/GYNECOLOGICAL Hx Genitourinary Disorders: No - PSYCHIATRIC Hx Substance Use: No - SURGICAL HISTORY Hx Cholecystectomy: Yes - ANESTHESIA Hx Anesthesia: Yes Hx Anesthesia Reactions: No Meds Allergies/Adverse Reactions: Allergies Allergy/AdvReac Type Severity Reaction Status Date / Time No Known Allergies Allergy Verified 04/20/17 12:35 - Medications Medications: Current Medications Enoxaparin Sodium (Lovenox) 44 mg SC Q12 [facility] Last Admin: 04/22/17 10:24 Dose: 44 mg Famotidine (Pepcid) 20 mg IVP Q12 [facility] Last Admin: 04/22/17 10:24 Dose: 20 mg Gentamicin Sulfate (Gentamicin) 60 mg IVPB Q8H [facility] Sodium Chloride (Sodium Chloride 0.45%) 1,000 mls @ 100 mls/hr IV .Q10H [facility] Last Admin: 04/22/17 01:26 Dose: 100 mls/hr Meropenem 1 gm/ Sodium (Chloride) 100 mls @ 100 mls/hr IVPB Q8 [facility] Methylprednisolone (Solu-Medrol) 40 mg IV Q8 [facility] Last Admin: 04/22/17 14:04 Dose: 40 mg Fluticasone/Salmeterol (Advair Diskus 250/50) 1 puff INH RQ12 [facility] Last Admin: 04/22/17 07:39 Dose: 1 puff Results - Vital Signs Recent Vital Signs: Last Vital Signs Temp 97.3 F L 04/22/17 09:54 Pulse 71 04/22/17 09:54 Resp 20 04/22/17 09:54 BP 134/65 04/22/17 09:54 Pulse Ox 100 04/22/17 09:54 - Labs Result Diagrams: 04/22/17 09:37 04/22/17 09:37 Labs: Laboratory Results - last 24 hr 04/21/17 04/21/17 04/22/17 16:21 20:50 06:43 WBC RBC Hgb Hct MCV MCH MCHC RDW Plt Count MPV Neut % (Auto) Lymph % (Auto) [place] % (Auto) Eos % (Auto) Baso % (Auto) Neut # Lymph # [place] # Eos # Baso # Neutrophils % (Manual) Lymphocytes % (Manual) Monocytes % (Manual) Platelet Estimate Plt Clumps, EDTA Large Platelets Anisocytosis (manual) Tear Drop Cells Ovalocytes Sodium Potassium Chloride Carbon Dioxide Anion Gap BUN Creatinine Est GFR ( Amer) Est GFR (Non-Af Amer) POC Glucose (mg/dL) 145 H 143 H 165 H Random Glucose Calcium Phosphorus Magnesium Total Bilirubin AST ALT Alkaline Phosphatase Total Protein Albumin Globulin Albumin/Globulin Ratio 04/22/17 04/22/17 04/22/17 09:37 09:37 11:41 WBC 13.6 H RBC 3.39 L Hgb 10.3 L Hct 31.5 L MCV 92.9 MCH 30.2 MCHC 32.6 L RDW 15.0 H Plt Count 263 MPV 8.4 Neut % (Auto) 94.7 H Lymph % (Auto) 4.5 L [place] % (Auto) 0.8 Eos % (Auto) 0.0 Baso % (Auto) 0.0 Neut # 12.9 H Lymph # 0.6 L [place] # 0.1 Eos # 0.0 Baso # 0.0 Neutrophils % (Manual) 90 H Lymphocytes % (Manual) 9 L Monocytes % (Manual) 1 Platelet Estimate Normal Plt Clumps, EDTA Present Large Platelets Present Anisocytosis (manual) Slight Tear Drop Cells Slight Ovalocytes Slight Sodium 139 Potassium 3.2 L Chloride 105 Carbon Dioxide 22 Anion Gap 15 BUN 21 H Creatinine 0.7 Est GFR ( Amer) > 60 Est GFR (Non-Af Amer) > 60 POC Glucose (mg/dL) 208 H Random Glucose 176 H Calcium 8.3 L Phosphorus 2.8 Magnesium 1.9 Total Bilirubin 0.6 AST 29 ALT 11 Alkaline Phosphatase 64 Total Protein 7.6 Albumin 3.5 Globulin 4.1 H Albumin/Globulin Ratio 0.9 L
[2017-04-22] MEDS ORDERED: Gentamicin 80 mg/2mL Inj. IVPB SCH (15:30)
[2017-04-22] MEDS: Meropenem 1 GM in Sodium Chloride 0.9% 100 ML IVPB SCH (17:09)
--- NOTE | 2017-04-22 21:05 | PN ---
DATE: SUBJECTIVE: The patient denies any dizziness or palpitation. No chest pain. PHYSICAL EXAMINATION: VITAL SIGNS: Blood pressure 134/65, heart rate 71, temperature 97.3, respiration 20. HEENT: Staring look. NECK: No JVD. CHEST: Bilateral coarse crepitations. HEART: S1 and S2 regular. EXTREMITIES: Significant muscle wasting. LABORATORY DATA: Hemoglobin and hematocrit 10.3 and 31.5, white count 15.6, platelet count 263,000. Today's potassium is 3.2, glucose is 176. Brain MRI, no evidence of acute intracranial hemorrhage, mass effect, or midline shift. No evidence of acute or subacute infarct. Chest, abdominal, and pelvis CT scan, solid mass of the right upper lobe. 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 Separate tumor burden in the right hilum and mediastinum, difficult to further characterize in the absence of intervenous contrast. Right upper lobe pneumonitis. Moderate severe interstitial lung disease, primarily honeycombing, underlying bronchiectasis is identified. Unilateral right hydronephrosis, hydroureter, markedly distended urinary bladder with slippery intraluminal bladder calculus. ASSESSMENT: 1. Paroxysmal atrial flutter. 2. Hyperthyroidism. 3. Right upper lobe mass. 4. Pulmonary fibrosis. 5. Right hydronephrosis and right hydroureter secondary to bladder stone. 6. Hypokalemia. CONDITIONS: Case discussed with the primary physician. Continue current IV Imipenem and IV Zosyn. Continue Solu-Medrol 40 mg intravenous q.8h., therapeutic subcutaneous Lovenox is 40 mg twice a day, 20 mEq of IV potassium intravenous started. Prasanna Bustillo MD
[2017-04-23] MEDS: Meropenem 1 GM in Sodium Chloride 0.9% 100 ML IVPB SCH ×3 (02:00→17:20)
--- NOTE | 2017-04-23 05:59 | CON ---
INFECTIOUS DISEASE CONSULTATION DATE: REQUESTING PHYSICIAN: Dr. Faizan Ledesma. HISTORY OF PRESENT ILLNESS: This patient is an 86-year-old female. She has a history of lupus, pulmonary fibrosis, osteoporosis. She was presented to the ED with altered mental status, which was acute change according to the daughter and she was talking nonsense, was unable to go to the bathroom without assistance. Today, she seems very alert and I am asked to follow her because of blood cultures are positive and urine culture is positive and she denies any complaints at this time and the patient does say she has productive cough, which is there because she suffers from pulmonary fibrosis. It was reported and this patient denies any fever or chills right now. Denies any pain. Denies any other complaints. PAST MEDICAL HISTORY: She has history of lupus, osteoporosis, hyperthyroidism, and pulmonary fibrosis. SOCIAL HISTORY: She smoked two pack per day x30 years. She is a former smoker. No history of drug or alcohol abuse. ALLERGIES: SHE IS NOT ALLERGIC TO ANY MEDICINE. PAST SURGICAL HISTORY: Significant for cholecystectomy. MEDICATIONS: She was on cyclobenzaprine, which could probably make her alter, levothyroxine, memantine, hydroxychloroquine 200 mg p.o. daily, and folic acid. REVIEW OF SYSTEMS: She would not void in the commode at the bedside, so the nurses legal executive assistant assisted her to the bathroom and she came back. She looks pretty alert and denies any headaches. No ear, nose, or throat problems right now. No chest pain. No shortness of breath. No abdominal pain. No nausea and no vomiting. She does have past medical history as above, which was noted. PHYSICAL EXAMINATION: GENERAL: She is awake and alert, in no acute respiratory distress. HEENT: Head is atraumatic and normocephalic. Eye movements are unremarkable. Mild pallor present. Tongue is moist. NECK: Supple. JVP is flat. LUNGS: Have some fine crackles on the right base, otherwise, clear. HEART: S1 and S2 is regular. No murmurs present. No guarding present. ABDOMEN: Soft and nontender at this time. No guarding. No rigidity present. EXTREMITIES: Have no edema, clubbing, or cyanosis. She did had mild right CVA tenderness, otherwise, she is moving all her extremities and appears to be in a pleasant mood at this time. LABORATORY DATA: Labs are noted. Labs show; white count yesterday was 17 and today it is 13.6, hemoglobin 10.3, hematocrit 31.5, platelet count is 263, and neutrophils are 90%. Sodium is 139, potassium is 3.2, chloride is 105, CO2 is 22, anion gap is 15, BUN is 21 and creatinine is 0.7. Labs show actually micro branch, blood culture shows Gram-negative rods in two sets and ID and sensitivity of which is pending. Where the urine culture has come back positive, it is Klebsiella pneumoniae, which is ESBL negative, but at this time, since the blood cultures are pending, I would put her on meropenem and gentamicin and also I noted that x-ray was read. She had a CAT scan of the abdomen and pelvis, which was done on her admission, which shows solid mass right upper lobe, finding may represent tumor burden in the right hilum and mediastinum, difficult to characterize in the absence of IV contrast and she has a right upper lobe pneumonitis, which may be post obstructive, [id number] interstitial lung disease, which we already know about and she has a unilateral right hydronephrosis, hydroureter, distended urinary bladder with solitary intraluminal bladder calculus and there are no benign findings, so she has a bladder calculus, which is 13 x 15 mm and that is why she probably has right hydronephrosis also and has septicemia with gram-negative rods and Klebsiella. PLAN: We will put her on meropenem and gentamicin at this time and we will wait for the evaluation, which is Dr. Villeda. He is going to see and order an echocardiogram and we will follow. Denise Melton MD
[2017-04-23 07:32] LABS: HEMATOCRIT 35.3 % (34.0-47.0); LYMPH # 0.8 K/uL (1.0-4.3); LYMPH % 7.2 % (20.0-40.0); MEAN CELL VOLUME 91.5 fL (81.0-99.0); MEAN CORPUSCULAR HGB CONC 32.8 g/dL (33.0-37.0); MEAN PLATELET VOLUME 8.2 fL (7.2-11.7); MONO # 0.4 K/uL (0.0-0.8); MONO % 3.2 % (0.0-10.0); NRBC % 0.1 % (0.0-2.0); PLATELET COUNT 304 K/uL (130-400); RED CELL DISTRIBUTION WIDTH 14.9 % (11.5-14.5); WHITE BLOOD COUNT 11.3 K/uL (4.8-10.8)
--- NOTE | 2017-04-23 07:40 | CP.PCM.PN ---
<Bhavna Tate - Last Filed: 04/23/17 17:48> Subjective - Date & Time of Evaluation Date of Evaluation: 04/23/17 Time of Evaluation: 07:00 - Subjective Subjective: Medicine Progress Note: Patient was seen and examined at bedside in the AM. Patient states she knows she is in the hospital and she states it is 2017. She denies pain and states she would like to walk around. She states she usually walks down her street. Patient states she is eating and denies nausea or vomiting. Objective - Vital Signs/Intake and Output Vital Signs (last 24 hours): Temp Pulse Resp BP Pulse Ox 97.9 F 77 18 146/69 99 04/22/17 15:43 04/23/17 00:00 04/22/17 15:43 04/22/17 15:43 04/22/17 15:43 Intake and Output: 04/23/17 04/23/17 06:59 18:59 Intake Total 2100 Output Total 3100 Balance -1000 - Medications Medications: Current Medications Enoxaparin Sodium (Lovenox) 44 mg SC Q12 [facility] Last Admin: 04/22/17 21:29 Dose: 44 mg Famotidine (Pepcid) 20 mg IVP Q12 [facility] Last Admin: 04/22/17 21:27 Dose: 20 mg Sodium Chloride (Sodium Chloride 0.45%) 1,000 mls @ 100 mls/hr IV .Q10H [facility] Last Admin: 04/22/17 21:27 Dose: 100 mls/hr Meropenem 1 gm/ Sodium (Chloride) 100 mls @ 100 mls/hr IVPB Q8H [facility] Last Admin: 04/23/17 02:00 Dose: 100 mls/hr Gentamicin Sulfate 60 mg/ (Sodium Chloride) 101.5 mls @ 101.5 mls/hr IVPB Q8H [facility] Last Admin: 04/23/17 01:00 Dose: 101.5 mls/hr Methylprednisolone (Solu-Medrol) 40 mg IV Q8 [facility] Last Admin: 04/23/17 06:03 Dose: 40 mg Fluticasone/Salmeterol (Advair Diskus 250/50) 1 puff INH RQ12 [facility] Last Admin: 04/22/17 19:34 Dose: 1 puff - Labs Labs: 04/23/17 07:19 04/22/17 09:37 PT 13.2 SECONDS (9.7-12.2) H 04/20/17 13:15 INR 1.2 04/20/17 13:15 APTT 33 SECONDS (21-34) 04/20/17 13:15 - Constitutional Appears: No Acute Distress, Cachectic - Head Exam Head Exam: ATRAUMATIC, NORMAL INSPECTION, NORMOCEPHALIC - Eye Exam Eye Exam: EOMI, Normal appearance, PERRL Pupil Exam: NORMAL ACCOMODATION - ENT Exam ENT Exam: Mucous Membranes Moist - Respiratory Exam Respiratory Exam: Decreased Breath Sounds, NORMAL BREATHING PATTERN - Cardiovascular Exam Cardiovascular Exam: REGULAR RHYTHM, RRR, +S1, +S2 - GI/Abdominal Exam GI & Abdominal Exam: Soft, Normal Bowel Sounds. absent: Tenderness - Extremities Exam Extremities Exam: Normal Inspection. absent: Pedal Edema, Tenderness - Neurological Exam Neurological Exam: Alert, Awake, Oriented x3 - Psychiatric Exam Psychiatric exam: Normal Affect, Normal Mood - Skin Skin Exam: Normal Color, Warm Assessment and Plan - Assessment and Plan (Free Text) Assessment: 1.) UTI * Consult urology Dr. Villeda --> help appreciated * ID Consult: Dr. Melton --> help appreciated * Raines Cath - removed 04/23 * bladder scan at 9pm * Urine culture: Klebsiella Pneumoniae * Blood culture: Klebsiella Pneumoniae * continue Gentamicin started 04/23 * continue Meropenem started 04/22 2.) Lung Mass * Chest x-ray: Extensive diffuse interstitial infiltrate with sahara consolidation in right apex common nonspecific. Consider correlation with chest CT examination. * Chest/Abdomen/Pelvis CT: 1. Solid mass right upper lobe. 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 Separate tumor burden in the right hilum and mediastinum difficult to further characterize in the absence of intravenous contrast. 2. Right upper lobe pneumonitis. 3. Moderate -severe interstitial lung disease primarily honeycombing. Underlying findings suggestive of bronchiectasis also identified. 4. Unilateral, right hydronephrosis, hydroureter. Markedly distended urinary bladder with solitary intraluminal bladder calculus. Additional benign and/or incidental findings described above. * Pulm consult: Dr. Ambrose --> help appreciated * Per Dr. Ambrose's note: possible lung mass biopsy 3. AMS -resolved * Neurology consult (Dr. Mccoy) - recs appreciated * MRI brain without contrast: Somewhat limited study due patient's motion; No evidence of acute intracranial hemorrhage mass effect or midline shift. No evidence of acute or subacute infarction. Mild volume loss. * Carotid echo: Right and Left internal carotid: Normal * Head CT: Normal CT of the head. No evidence of acute infarct. No intracranial hemorrhage. No intracranial mass. 4.) Pulmonary fibrosis * Advair Q12 * Solumedrol 40mg Q8 5.) Atrial Flutter * Cardiology Consult: Dr. Bustillo --> help appreciated * Lovenox 44 mg SC Q12 * Patient has been in Normal Sinus Rhythm - Spoke with Dr. Bustillo will evaluate if patient needs to continue anticoagulation 6.) Hypothyroidism * Holding home med: Levothyroxine 100mcg QD 7.) Prophylaxis * Pepcid 20 mg IV Q12 * Lovenox 44mg SC Q12h * PT/OT Case Discussed with Dr. Callie Tate PGY-1 <Faizan Ledesma - Last Filed: 04/23/17 19:02> Objective - Vital Signs/Intake and Output Vital Signs (last 24 hours): Temp Pulse Resp BP Pulse Ox 97.6 F 77 18 141/77 99 04/23/17 16:00 04/23/17 16:00 04/23/17 16:00 04/23/17 16:00 04/23/17 16:00 Intake and Output: 04/23/17 04/23/17 06:59 18:59 Intake Total 2100 950 Output Total 3100 1000 Balance -1000 -50 - Medications Medications: Current Medications Enoxaparin Sodium (Lovenox) 44 mg SC Q12 [facility] Last Admin: 04/23/17 09:50 Dose: 44 mg Famotidine (Pepcid) 20 mg IVP Q12 [facility] Last Admin: 04/23/17 09:50 Dose: 20 mg Sodium Chloride (Sodium Chloride 0.45%) 1,000 mls @ 100 mls/hr IV .Q10H [facility] Last Admin: 04/23/17 10:52 Dose: 100 mls/hr Meropenem 1 gm/ Sodium (Chloride) 100 mls @ 100 mls/hr IVPB Q8H [facility] Last Admin: 04/23/17 17:20 Dose: 100 mls/hr Gentamicin Sulfate 60 mg/ (Sodium Chloride) 51.5 mls @ 101.5 mls/hr IVPB Q8H [facility] Last Admin: 04/23/17 17:19 Dose: 101.5 mls/hr Methylprednisolone (Solu-Medrol) 40 mg IV Q8 [facility] Last Admin: 04/23/17 14:05 Dose: 40 mg Fluticasone/Salmeterol (Advair Diskus 250/50) 1 puff INH RQ12 [facility] Last Admin: 04/23/17 08:09 Dose: 1 puff - Labs Labs: 04/23/17 07:19 04/23/17 07:19 PT 13.2 SECONDS (9.7-12.2) H 04/20/17 13:15 INR 1.2 04/20/17 13:15 APTT 33 SECONDS (21-34) 04/20/17 13:15 Attending/Attestation - Attestation I have personally seen and examined this patient.: Yes I have fully participated in the care of the patient.: Yes I have reviewed all pertinent clinical information, including history, physical exam and plan: Yes Notes (Text): 04/23/17 18:56 Medical Attending: Patient was seen and examined by me. Agree with the above note by the medical office asst. The patient was very awake and alert when we saw her. She is currently remaining on IV abx for the UTI. Her breathing is also stable as well and probably tomorrow we will start decreasing the IV soulmedrol With regards to the patient's lung mass, we will try to get a biopsy of the area. thank you Faizan Ledesma
[2017-04-23 07:51] LABS: CHLORIDE 105 mmol/L (98-107); POTASSIUM 3.6 mmol/L (3.6-5.2); SODIUM 143 mmol/L (132-148)
[2017-04-23 07:53] LABS: ALB/GLOB RATIO 0.8 (1.0-2.1); ALKALINE PHOSPHATASE 70 U/L (38-126); AST/SGOT 28 U/L (14-36); BILIRUBIN,TOTAL 0.5 mg/dL (0.2-1.3); CARBON DIOXIDE 29 mmol/L (22-30); GFR AFRICAN-AMERICAN > 60; TOTAL PROTEIN 7.9 g/dL (6.3-8.3)
[2017-04-23 07:54] LABS: ALT/SGPT 14 U/L (9-52); BLOOD UREA NITROGEN 17 mg/dL (7-17); CALCIUM 8.5 mg/dl (8.6-10.4); GLUCOSE,RANDOM 125 mg/dL (65-105); MAGNESIUM 1.8 mg/dL (1.6-2.3); PHOSPHOROUS 2.4 mg/dL (2.5-4.5)
[2017-04-23] MEDS: Fluticasone-Salmeterol 250-50mcg Diskus INH SCH ×2 (08:09→20:06)
[2017-04-23 08:36] LABS: NEUTROPHIL 88 % (50-75); TOTAL CELLS COUNTED 100
[2017-04-23] MEDS: Enoxaparin 60 mg Syringe SC SCH ×2 (09:50→22:46)
[2017-04-23] MEDS: Sodium Chloride 0.45% 1,000 ML IV SCH ×3 (09:54→10:52)
--- NOTE | 2017-04-23 14:27 | PN ---
DATE: SUBJECTIVE: The patient is currently one-to-one watch because of confusion. No reported hypertension. No ventricular arrhythmia. The patient denied any chest pain or palpitation. PHYSICAL EXAMINATION VITAL SIGNS: Blood pressure 118/64, heart rate 86, temperature 98.1, respirations 20. HEENT: Staring look. NECK: No JVD. CHEST: Clear. HEART: S1 and S2 regular. EXTREMITIES: Significant muscle wasting. LABORATORY DATA: SMA-7 is within normal limits except for glucose of 125 and creatinine 0.6. Calcium is within normal at 8.5 and phosphorus is within normal at 2.4. Hemoglobin and hematocrit 11.6 and 35.3, white count 11.8, platelet count 304,000. ASSESSMENT: 1. Hyperthyroidism. 2. Paroxysmal atrial flutter. 3. Right upper lobe lung mass. 4. Pulmonary fibrosis. 5. Right hydronephrosis and right hydroureter secondary to bladder stone. CONDITIONS: Continue Solu-Medrol 40 mg intravenous q.8 hours, half normal saline 100 mL per hour, IV meropenem at 1 gram q.8 hours, IV gentamicin 60 mg intravenous q.8 hours, and continue Advair 1 puff q.12 hours. Echo was performed and I will review the study once its need available. In the meantime, continue subcutaneous Lovenox. Prasanna Bustillo MD
--- NOTE | 2017-04-23 14:34 | CP.PCM.CON ---
History of Present Illness - History of Present Illness History of Present Illness: reason for consultation: lung mass 86-year-old female with history off lupus, long history of smoking, pulmonary fibrosis, osteoporosis was brought to emergency room after she was found on the floor confused, diaphoretic. Patient also complaining of cough and sore throat. CAT scan of the chest consistent with lung mass, pulmonary fibrosis and bronchiectasis . PMH: pulmonary fibrosis, lupus, osteoporosis, hypothyroidism Meds: * cyclobenzaprine 10 mg PO TID PRN * Levothyroxine 100 mcg PO QD * Memantine 10 mg PO BID * Hydroxycholorquine 200 mg PO QD * Folic acid 1 mg QD PSH: Cholecystectomy Allergies: NKDA FamHx: denies SocHx: Former smoker (2 pk/wk x30 yrs), denies alcohol and drug use Review of Systems - Review of Systems All systems: reviewed and no additional remarkable complaints except (cough) Past Patient History - Past Medical History & Family History Past Medical History?: Yes - Past Social History Smoking Status: Former Smoker - CARDIAC Hx Cardiac Disorders: No - PULMONARY Hx Chronic Obstructive Pulmonary Disease (COPD): Yes - NEUROLOGICAL Hx Neurological Disorder: No - HEENT Hx HEENT Problems: No - RENAL Hx Chronic Kidney Disease: No - ENDOCRINE/METABOLIC Hx Endocrine Disorders: No - HEMATOLOGICAL/ONCOLOGICAL Hx Blood Disorders: Yes (SLE) - INTEGUMENTARY Hx Dermatological Problems: No - MUSCULOSKELETAL/RHEUMATOLOGICAL Hx Osteoporosis: Yes - GASTROINTESTINAL Hx Gastritis: Yes - GENITOURINARY/GYNECOLOGICAL Hx Genitourinary Disorders: No - PSYCHIATRIC Hx Substance Use: No - SURGICAL HISTORY Hx Cholecystectomy: Yes - ANESTHESIA Hx Anesthesia: Yes Hx Anesthesia Reactions: No Meds Allergies/Adverse Reactions: Allergies Allergy/AdvReac Type Severity Reaction Status Date / Time No Known Allergies Allergy Verified 04/20/17 12:35 - Medications Medications: Current Medications Enoxaparin Sodium (Lovenox) 44 mg SC Q12 [facility] Last Admin: 04/23/17 09:50 Dose: 44 mg Famotidine (Pepcid) 20 mg IVP Q12 [facility] Last Admin: 04/23/17 09:50 Dose: 20 mg Sodium Chloride (Sodium Chloride 0.45%) 1,000 mls @ 100 mls/hr IV .Q10H [facility] Last Admin: 04/23/17 10:52 Dose: 100 mls/hr Meropenem 1 gm/ Sodium (Chloride) 100 mls @ 100 mls/hr IVPB Q8H [facility] Last Admin: 04/23/17 10:00 Dose: 100 mls/hr Gentamicin Sulfate 60 mg/ (Sodium Chloride) 51.5 mls @ 101.5 mls/hr IVPB Q8H [facility] Methylprednisolone (Solu-Medrol) 40 mg IV Q8 [facility] Last Admin: 04/23/17 14:05 Dose: 40 mg Fluticasone/Salmeterol (Advair Diskus 250/50) 1 puff INH RQ12 [facility] Last Admin: 04/23/17 08:09 Dose: 1 puff Physical Exam - Head Exam Head Exam: ATRAUMATIC, NORMOCEPHALIC - Eye Exam Eye Exam: Normal appearance - ENT Exam ENT Exam: Mucous Membranes Moist - Respiratory Exam Respiratory Exam: Decreased Breath Sounds, Rales Results - Vital Signs Recent Vital Signs: Last Vital Signs Temp 98.1 F 04/23/17 09:19 Pulse 86 04/23/17 12:32 Resp 20 04/23/17 09:19 BP 120/74 04/23/17 09:19 Pulse Ox 92 L 04/23/17 12:32 - Labs Result Diagrams: 04/23/17 07:19 04/23/17 07:19 Labs: Laboratory Results - last 24 hr 04/22/17 04/22/17 04/23/17 16:43 20:57 06:36 WBC RBC Hgb Hct MCV MCH MCHC RDW Plt Count MPV Neut % (Auto) Lymph % (Auto) Bremer % (Auto) Eos % (Auto) Baso % (Auto) Neut # Lymph # Bremer # Eos # Baso # Neutrophils % (Manual) Lymphocytes % (Manual) Monocytes % (Manual) Platelet Estimate Hypochromasia (manual) Poikilocytosis (manual Anisocytosis (manual) Sodium Potassium Chloride Carbon Dioxide Anion Gap BUN Creatinine Est GFR ( Amer) Est GFR (Non-Af Amer) POC Glucose (mg/dL) 151 H 184 H 133 H Random Glucose Calcium Phosphorus Magnesium Total Bilirubin AST ALT Alkaline Phosphatase Total Protein Albumin Globulin Albumin/Globulin Ratio Gentamicin Peak Gentamicin Trough 04/23/17 04/23/17 04/23/17 07:19 07:19 07:19 WBC 11.3 H RBC 3.85 Hgb 11.6 Hct 35.3 MCV 91.5 MCH 30.0 MCHC 32.8 L RDW 14.9 H Plt Count 304 MPV 8.2 Neut % (Auto) 89.6 H Lymph % (Auto) 7.2 L Bremer % (Auto) 3.2 Eos % (Auto) 0.0 Baso % (Auto) 0.0 Neut # 10.2 H Lymph # 0.8 L Bremer # 0.4 Eos # 0.0 Baso # 0.0 Neutrophils % (Manual) 88 H Lymphocytes % (Manual) 7 L Monocytes % (Manual) 5 Platelet Estimate Normal Hypochromasia (manual) Slight Poikilocytosis (manual Slight Anisocytosis (manual) Slight Sodium 143 Potassium 3.6 Chloride 105 Carbon Dioxide 29 Anion Gap 12 BUN 17 Creatinine 0.6 L Est GFR ( Amer) > 60 Est GFR (Non-Af Amer) > 60 POC Glucose (mg/dL) Random Glucose 125 H Calcium 8.5 L Phosphorus 2.4 L Magnesium 1.8 Total Bilirubin 0.5 AST 28 ALT 14 Alkaline Phosphatase 70 Total Protein 7.9 Albumin 3.6 Globulin 4.3 H Albumin/Globulin Ratio 0.8 L Gentamicin Peak Gentamicin Trough 1.6 H 04/23/17 04/23/17 12:21 12:41 WBC RBC Hgb Hct MCV MCH MCHC RDW Plt Count MPV Neut % (Auto) Lymph % (Auto) Bremer % (Auto) Eos % (Auto) Baso % (Auto) Neut # Lymph # Bremer # Eos # Baso # Neutrophils % (Manual) Lymphocytes % (Manual) Monocytes % (Manual) Platelet Estimate Hypochromasia (manual) Poikilocytosis (manual Anisocytosis (manual) Sodium Potassium Chloride Carbon Dioxide Anion Gap BUN Creatinine Est GFR ( Amer) Est GFR (Non-Af Amer) POC Glucose (mg/dL) 172 H Random Glucose Calcium Phosphorus Magnesium Total Bilirubin AST ALT Alkaline Phosphatase Total Protein Albumin Globulin Albumin/Globulin Ratio Gentamicin Peak 5.3 Gentamicin Trough Assessment & Plan (1) Lung mass Status: Acute Priority: High Comment: consider lung biopsy by IR. Continue IV steroids. Consider antibiotics for bronchiectasis. For culture d sensitivity (2) ILD (interstitial lung disease) Status: Acute Priority: High (3) History of lupus Status: Chronic Priority: High
--- NOTE | 2017-04-23 21:21 | CP.PCM.PN ---
Subjective - Date & Time of Evaluation Date of Evaluation: 04/23/17 Time of Evaluation: 05:00 - Subjective Subjective: dictated Objective - Vital Signs/Intake and Output Vital Signs (last 24 hours): Temp Pulse Resp BP Pulse Ox 97.6 F 86 18 141/77 99 04/23/17 16:00 04/23/17 17:30 04/23/17 16:00 04/23/17 16:00 04/23/17 16:00 Intake and Output: 04/23/17 04/24/17 18:59 06:59 Intake Total 950 Output Total 1000 Balance -50 - Medications Medications: Current Medications Enoxaparin Sodium (Lovenox) 44 mg SC Q12 [facility] Last Admin: 04/23/17 09:50 Dose: 44 mg Famotidine (Pepcid) 20 mg IVP Q12 [facility] Last Admin: 04/23/17 09:50 Dose: 20 mg Sodium Chloride (Sodium Chloride 0.45%) 1,000 mls @ 100 mls/hr IV .Q10H [facility] Last Admin: 04/23/17 10:52 Dose: 100 mls/hr Meropenem 1 gm/ Sodium (Chloride) 100 mls @ 100 mls/hr IVPB Q8H [facility] Last Admin: 04/23/17 17:20 Dose: 100 mls/hr Gentamicin Sulfate 60 mg/ (Sodium Chloride) 51.5 mls @ 101.5 mls/hr IVPB Q8H [facility] Last Admin: 04/23/17 17:19 Dose: 101.5 mls/hr Methylprednisolone (Solu-Medrol) 40 mg IV Q8 [facility] Last Admin: 04/23/17 14:05 Dose: 40 mg Fluticasone/Salmeterol (Advair Diskus 250/50) 1 puff INH RQ12 [facility] Last Admin: 04/23/17 20:06 Dose: 1 puff - Labs Labs: 04/23/17 07:19 04/23/17 07:19 PT 13.2 SECONDS (9.7-12.2) H 04/20/17 13:15 INR 1.2 04/20/17 13:15 APTT 33 SECONDS (21-34) 04/20/17 13:15
--- NOTE | 2017-04-23 21:53 | PN ---
DATE: SUBJECTIVE: I went to see the patient. She knows she is in the hospital. She denied any pains today. She has an indwelling Raines catheter. She was seen by pulmonary also. She does have a history of lupus, smoking, and pulmonary fibrosis, but she denied any fever or chills. PHYSICAL EXAMINATION HEENT: Head is atraumatic, normocephalic. NECK: Supple. LUNGS: Did have some crackles on the left lung. HEART: S1 and S2 is regular. No murmurs appreciated. ABDOMEN: Soft, nontender. No guarding. No rigidity present. EXTREMITIES: Have no edema, clubbing, or cyanosis. LABORATORY DATA: Her labs were noted. Lab show white count is 11.3, hemoglobin 11.6, hematocrit 35.3, platelet count is 304. Her chemistry shows BUN is 17, creatinine 0.6, glucose was 125. LFTs are unremarkable. She did had blood culture, which blood culture shows Klebsiella pneumoniae, but it is ESBL negative. It is very sensitive to Cipro and sensitive to gentamicin. Urine also has Klebsiella. ASSESSMENT AND PLAN: So there is septicemia secondary to UTI and she also has right hydronephrosis, which was noted. At this point, I will continue meropenem and gentamicin and she is on steroids and other respiratory treatment. I am waiting for the evaluation by the urologist, then echocardiogram. They did a trough today and the trough was 1.6 and peak is 5.3, which is fine to treat. We will follow. She has mass in the lungs and also has right hydronephrosis, needs urology evaluation and echocardiogram. Once she gets better and stabilizes, we will try to deescalate the antibiotics. We will follow. Denise Melton MD
[2017-04-24] MEDS: Meropenem 1 GM in Sodium Chloride 0.9% 100 ML IVPB SCH ×3 (01:04→16:57)
[2017-04-24] MEDS ORDERED: MethylPREDNISolone 40 mg Vial IV SCH ×2 (06:00→10:30)
[2017-04-24 08:03] LABS: BASO % 0.1 % (0.0-2.0); HEMATOCRIT 36.6 % (34.0-47.0); LYMPH # 0.8 K/uL (1.0-4.3); LYMPH % 9.5 % (20.0-40.0); MEAN CELL VOLUME 92.3 fL (81.0-99.0); MEAN CORPUSCULAR HEMOGLOBIN 30.3 pg (27.0-31.0); MEAN CORPUSCULAR HGB CONC 32.8 g/dL (33.0-37.0); MEAN PLATELET VOLUME 8.2 fL (7.2-11.7); MONO # 0.3 K/uL (0.0-0.8); MONO % 3.7 % (0.0-10.0); PLATELET COUNT 311 K/uL (130-400); RED CELL DISTRIBUTION WIDTH 14.8 % (11.5-14.5); WHITE BLOOD COUNT 8.9 K/uL (4.8-10.8)
[2017-04-24 08:18] LABS: CHLORIDE 102 mmol/L (98-107); POTASSIUM 3.4 mmol/L (3.6-5.2); SODIUM 141 mmol/L (132-148)
[2017-04-24 08:19] LABS: GFR AFRICAN-AMERICAN > 60
[2017-04-24 08:20] LABS: ALKALINE PHOSPHATASE 66 U/L (38-126); AST/SGOT 45 U/L (14-36); BILIRUBIN,TOTAL 0.5 mg/dL (0.2-1.3); BLOOD UREA NITROGEN 17 mg/dL (7-17); CARBON DIOXIDE 28 mmol/L (22-30); GLUCOSE,RANDOM 117 mg/dL (65-105); PHOSPHOROUS 2.7 mg/dL (2.5-4.5); TOTAL PROTEIN 7.4 g/dL (6.3-8.3)
[2017-04-24 08:21] LABS: ALT/SGPT 36 U/L (9-52); CALCIUM 8.1 mg/dl (8.6-10.4); MAGNESIUM 1.8 mg/dL (1.6-2.3)
[2017-04-24 08:22] LABS: ALB/GLOB RATIO 0.9 (1.0-2.1)
[2017-04-24 09:01] LABS: TOTAL CELLS COUNTED 100
[2017-04-24 09:02] LABS: LARGE PLATELETS PRESENT; NEUTROPHIL 86 % (50-75)
--- NOTE | 2017-04-24 09:46 | CP.PCM.PN ---
Subjective - Date & Time of Evaluation Date of Evaluation: 04/24/17 Time of Evaluation: 07:00 - Subjective Subjective: Medicine Progress Note: Patient was seen and examined at bedside in the AM. Patient states she is feeling much better. She denies chest pain, shortness of breath, nausea or vomiting. Patient states she knows she is in the hospital and it is 2017. Objective - Vital Signs/Intake and Output Vital Signs (last 24 hours): Temp Pulse Resp BP Pulse Ox 97.3 F L 85 20 122/71 95 04/24/17 08:00 04/24/17 08:00 04/24/17 08:00 04/24/17 08:00 04/24/17 08:00 Intake and Output: 04/24/17 04/24/17 06:59 18:59 Intake Total 1600 Output Total 1800 Balance -200 - Medications Medications: Current Medications Enoxaparin Sodium (Lovenox) 44 mg SC Q12 [facility] Last Admin: 04/23/17 22:46 Dose: 44 mg Famotidine (Pepcid) 20 mg IVP Q12 [facility] Last Admin: 04/23/17 22:47 Dose: 20 mg Sodium Chloride (Sodium Chloride 0.45%) 1,000 mls @ 100 mls/hr IV .Q10H [facility] Last Admin: 04/23/17 10:52 Dose: 100 mls/hr Meropenem 1 gm/ Sodium (Chloride) 100 mls @ 100 mls/hr IVPB Q8H [facility] Last Admin: 04/24/17 01:04 Dose: 100 mls/hr Gentamicin Sulfate 60 mg/ (Sodium Chloride) 51.5 mls @ 101.5 mls/hr IVPB Q8H [facility] Last Admin: 04/24/17 08:47 Dose: 101.5 mls/hr Methylprednisolone (Solu-Medrol) 40 mg IV Q8 [facility] Last Admin: 04/24/17 06:25 Dose: 40 mg Fluticasone/Salmeterol (Advair Diskus 250/50) 1 puff INH RQ12 [facility] Last Admin: 04/23/17 20:06 Dose: 1 puff - Labs Labs: 04/24/17 07:48 04/24/17 07:48 PT 13.2 SECONDS (9.7-12.2) H 04/20/17 13:15 INR 1.2 04/20/17 13:15 APTT 33 SECONDS (21-34) 04/20/17 13:15 - Constitutional Appears: No Acute Distress, Cachectic - Head Exam Head Exam: ATRAUMATIC, NORMAL INSPECTION, NORMOCEPHALIC - Eye Exam Eye Exam: EOMI, Normal appearance, PERRL Pupil Exam: NORMAL ACCOMODATION - ENT Exam ENT Exam: Mucous Membranes Moist - Respiratory Exam Respiratory Exam: Clear to Ausculation Bilateral, NORMAL BREATHING PATTERN - Cardiovascular Exam Cardiovascular Exam: REGULAR RHYTHM, RRR, +S1, +S2 - GI/Abdominal Exam GI & Abdominal Exam: Soft, Normal Bowel Sounds. absent: Tenderness - Extremities Exam Extremities Exam: Normal Inspection. absent: Joint Swelling, Pedal Edema, Tenderness - Neurological Exam Neurological Exam: Alert, Awake, Oriented x3 - Psychiatric Exam Psychiatric exam: Normal Affect, Normal Mood - Skin Skin Exam: Normal Color, Warm Assessment and Plan - Assessment and Plan (Free Text) Assessment: 1.) UTI * Consult urology Dr. Villeda --> help appreciated * ID Consult: Dr. Melton --> help appreciated * Raines Cath - removed 04/24 * bladder scan at 6pm * Urine culture: Klebsiella Pneumoniae * Blood culture: Klebsiella Pneumoniae * continue Gentamicin started 04/23 * continue Meropenem started 04/22 2.) Lung Mass * Chest x-ray: Extensive diffuse interstitial infiltrate with sahara consolidation in right apex common nonspecific. Consider correlation with chest CT examination. * Chest/Abdomen/Pelvis CT: 1. Solid mass right upper lobe. 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 Separate tumor burden in the right hilum and mediastinum difficult to further characterize in the absence of intravenous contrast. 2. Right upper lobe pneumonitis. 3. Moderate -severe interstitial lung disease primarily honeycombing. Underlying findings suggestive of bronchiectasis also identified. 4. Unilateral, right hydronephrosis, hydroureter. Markedly distended urinary bladder with solitary intraluminal bladder calculus. Additional benign and/or incidental findings described above. * Pulm consult: Dr. Ambrose --> help appreciated * Per Dr. Ambrose's note: possible lung mass biopsy * IR Consult: Dr. Cedeno for CT guided lung biopsy --> help appreciated * Spoke with Dr. Cedeno and he stated this can be done as an outpatient 3. AMS -resolved * Neurology consult (Dr. Mccoy) - recs appreciated * MRI brain without contrast: Somewhat limited study due patient's motion; No evidence of acute intracranial hemorrhage mass effect or midline shift. No evidence of acute or subacute infarction. Mild volume loss. * Carotid echo: Right and Left internal carotid: Normal * Head CT: Normal CT of the head. No evidence of acute infarct. No intracranial hemorrhage. No intracranial mass. 4.) Pulmonary fibrosis * Advair Q12 * Solumedrol 20mg BID 5.) Atrial Flutter * Cardiology Consult: Dr. Bustillo --> help appreciated * f/u ECHO * Lovenox 44 mg SC Q12 * Patient has been in Normal Sinus Rhythm - Spoke with Dr. Bustillo will evaluate if patient needs to continue anticoagulation 6.) Hypothyroidism * Holding home med: Levothyroxine 100mcg QD * TSH (04/20): 0.02; T4 (04/23): 11.6 * Endocrine Consult: Dr. Azevedo --> help appreciated 7.) Prophylaxis * Pepcid 20 mg IV Q12 * Lovenox 44mg SC Q12h * PT/OT Case Discussed with Dr. Callie Tate PGY-1
[2017-04-24] MEDS ORDERED: Potassium Chloride 20 mEq ER Tab PO ONE (10:14)
[2017-04-24] MEDS: Enoxaparin 60 mg Syringe SC SCH (10:20)
--- NOTE | 2017-04-24 10:31 | CP.PCM.PN ---
Subjective - Date & Time of Evaluation Date of Evaluation: 04/24/17 Time of Evaluation: 10:27 - Subjective Subjective: Ms. Clements was seen and examined at bedside with the assistance of leader assembler ID ([id number]). She denies any pain, lightheadedness, dizziness, headache, or weakness. There was no untoward events last night. Objective - Vital Signs/Intake and Output Vital Signs (last 24 hours): Temp Pulse Resp BP Pulse Ox 97.3 F L 85 20 122/71 95 04/24/17 08:00 04/24/17 08:00 04/24/17 08:00 04/24/17 08:00 04/24/17 08:00 Intake and Output: 04/24/17 04/24/17 06:59 18:59 Intake Total 1600 Output Total 1800 Balance -200 - Medications Medications: Current Medications Enoxaparin Sodium (Lovenox) 44 mg SC Q12 [facility] Last Admin: 04/24/17 10:20 Dose: 44 mg Famotidine (Pepcid) 20 mg IVP Q12 [facility] Last Admin: 04/24/17 10:19 Dose: 20 mg Sodium Chloride (Sodium Chloride 0.45%) 1,000 mls @ 100 mls/hr IV .Q10H [facility] Last Admin: 04/23/17 10:52 Dose: 100 mls/hr Meropenem 1 gm/ Sodium (Chloride) 100 mls @ 100 mls/hr IVPB Q8H [facility] Last Admin: 04/24/17 10:00 Dose: 100 mls/hr Gentamicin Sulfate 60 mg/ (Sodium Chloride) 51.5 mls @ 101.5 mls/hr IVPB Q8H [facility] Last Admin: 04/24/17 08:47 Dose: 101.5 mls/hr Methylprednisolone (Solu-Medrol) 20 mg IV Q12 [facility] Fluticasone/Salmeterol (Advair Diskus 250/50) 1 puff INH RQ12 [facility] Last Admin: 04/23/17 20:06 Dose: 1 puff - Labs Labs: 04/24/17 07:48 04/24/17 07:48 PT 13.2 SECONDS (9.7-12.2) H 04/20/17 13:15 INR 1.2 04/20/17 13:15 APTT 33 SECONDS (21-34) 04/20/17 13:15 - Constitutional Appears: Well - Head Exam Head Exam: ATRAUMATIC, NORMAL INSPECTION, NORMOCEPHALIC - Neurological Exam Neurological Exam: Alert, Awake, CN II-XII Intact Neuro motor strength exam: Left Upper Extremity: 5, Right Upper Extremity: 5, Left Lower Extremity: 5, Right Lower Extremity: 5 Additional comments: Ms. Clements is able to answer questions appropriately.She is able to follows simple commands. Assessment and Plan (1) UTI (urinary tract infection) Assessment & Plan: Case discussed with Dr. Mccoy, continue current medical treatments Status: Acute
[2017-04-24] MEDS: Fluticasone-Salmeterol 250-50mcg Diskus INH SCH ×2 (10:50→19:46)
[2017-04-24] MEDS: Sodium Chloride 0.45% 1,000 ML IV SCH ×2 (13:37→21:47)
--- NOTE | 2017-04-24 17:38 | CP.PCM.CON ---
Past Patient History - Past Medical History & Family History Past Medical History?: Yes - Past Social History Smoking Status: Former Smoker - CARDIAC Hx Cardiac Disorders: No - PULMONARY Hx Chronic Obstructive Pulmonary Disease (COPD): Yes - NEUROLOGICAL Hx Neurological Disorder: No - HEENT Hx HEENT Problems: No - RENAL Hx Chronic Kidney Disease: No - ENDOCRINE/METABOLIC Hx Endocrine Disorders: No - HEMATOLOGICAL/ONCOLOGICAL Hx Blood Disorders: Yes (SLE) - INTEGUMENTARY Hx Dermatological Problems: No - MUSCULOSKELETAL/RHEUMATOLOGICAL Hx Osteoporosis: Yes - GASTROINTESTINAL Hx Gastritis: Yes - GENITOURINARY/GYNECOLOGICAL Hx Genitourinary Disorders: No - PSYCHIATRIC Hx Substance Use: No - SURGICAL HISTORY Hx Cholecystectomy: Yes - ANESTHESIA Hx Anesthesia: Yes Hx Anesthesia Reactions: No Meds Allergies/Adverse Reactions: Allergies Allergy/AdvReac Type Severity Reaction Status Date / Time No Known Allergies Allergy Verified 04/20/17 12:35 - Medications Medications: Current Medications Enoxaparin Sodium (Lovenox) 44 mg SC Q12 [facility] Last Admin: 04/24/17 10:20 Dose: 44 mg Famotidine (Pepcid) 20 mg IVP Q12 [facility] Last Admin: 04/24/17 10:19 Dose: 20 mg Sodium Chloride (Sodium Chloride 0.45%) 1,000 mls @ 100 mls/hr IV .Q10H [facility] Last Admin: 04/24/17 13:37 Dose: Not Given Meropenem 1 gm/ Sodium (Chloride) 100 mls @ 100 mls/hr IVPB Q8H [facility] Last Admin: 04/24/17 16:57 Dose: 100 mls/hr Gentamicin Sulfate 60 mg/ (Sodium Chloride) 51.5 mls @ 101.5 mls/hr IVPB Q8H [facility] Last Admin: 04/24/17 16:55 Dose: 101.5 mls/hr Methylprednisolone (Solu-Medrol) 20 mg IV Q12 [facility] Fluticasone/Salmeterol (Advair Diskus 250/50) 1 puff INH RQ12 [facility] Last Admin: 04/24/17 10:50 Dose: 1 puff Results - Vital Signs Recent Vital Signs: Last Vital Signs Temp 98.9 F 04/24/17 15:06 Pulse 86 04/24/17 15:06 Resp 20 04/24/17 15:06 BP 131/73 04/24/17 15:06 Pulse Ox 97 04/24/17 15:06 - Labs Result Diagrams: 04/24/17 07:48 04/24/17 07:48 Labs: Laboratory Results - last 24 hr 04/24/17 04/24/17 04/24/17 06:30 07:48 07:48 WBC 8.9 RBC 3.97 Hgb 12.0 Hct 36.6 MCV 92.3 MCH 30.3 MCHC 32.8 L RDW 14.8 H Plt Count 311 MPV 8.2 Neut % (Auto) 86.7 H Lymph % (Auto) 9.5 L [place] % (Auto) 3.7 Eos % (Auto) 0.0 Baso % (Auto) 0.1 Neut # 7.7 H Lymph # 0.8 L [place] # 0.3 Eos # 0.0 Baso # 0.0 Neutrophils % (Manual) 86 H Band Neutrophils % 1 Lymphocytes % (Manual) 8 L Monocytes % (Manual) 5 Platelet Estimate Normal Large Platelets Present Sodium 141 Potassium 3.4 L Chloride 102 Carbon Dioxide 28 Anion Gap 15 BUN 17 Creatinine 0.6 L Est GFR ( Amer) > 60 Est GFR (Non-Af Amer) > 60 POC Glucose (mg/dL) 134 H Random Glucose 117 H Calcium 8.1 L Phosphorus 2.7 Magnesium 1.8 Total Bilirubin 0.5 AST 45 H D ALT 36 Alkaline Phosphatase 66 Total Protein 7.4 Albumin 3.4 L Globulin 4.0 H Albumin/Globulin Ratio 0.9 L Gentamicin Trough 04/24/17 04/24/17 04/24/17 11:49 16:27 17:00 WBC RBC Hgb Hct MCV MCH MCHC RDW Plt Count MPV Neut % (Auto) Lymph % (Auto) [place] % (Auto) Eos % (Auto) Baso % (Auto) Neut # Lymph # [place] # Eos # Baso # Neutrophils % (Manual) Band Neutrophils % Lymphocytes % (Manual) Monocytes % (Manual) Platelet Estimate Large Platelets Sodium Potassium Chloride Carbon Dioxide Anion Gap BUN Creatinine Est GFR ( Amer) Est GFR (Non-Af Amer) POC Glucose (mg/dL) 131 H 158 H Random Glucose Calcium Phosphorus Magnesium Total Bilirubin AST ALT Alkaline Phosphatase Total Protein Albumin Globulin Albumin/Globulin Ratio Gentamicin Trough 1.6 H Assessment & Plan (1) Lung mass Status: Acute Priority: High (2) ILD (interstitial lung disease) Status: Acute Priority: High (3) History of lupus Status: Chronic Priority: High
--- NOTE | 2017-04-24 17:40 | CP.PCM.PN ---
Objective - Vital Signs/Intake and Output Vital Signs (last 24 hours): Temp Pulse Resp BP Pulse Ox 98.9 F 86 20 131/73 97 04/24/17 15:06 04/24/17 15:06 04/24/17 15:06 04/24/17 15:06 04/24/17 15:06 Intake and Output: 04/24/17 04/24/17 06:59 18:59 Intake Total 1600 1300 Output Total 1800 1000 Balance -200 300 - Medications Medications: Current Medications Enoxaparin Sodium (Lovenox) 44 mg SC Q12 [facility] Last Admin: 04/24/17 10:20 Dose: 44 mg Famotidine (Pepcid) 20 mg IVP Q12 [facility] Last Admin: 04/24/17 10:19 Dose: 20 mg Sodium Chloride (Sodium Chloride 0.45%) 1,000 mls @ 100 mls/hr IV .Q10H [facility] Last Admin: 04/24/17 13:37 Dose: Not Given Meropenem 1 gm/ Sodium (Chloride) 100 mls @ 100 mls/hr IVPB Q8H [facility] Last Admin: 04/24/17 16:57 Dose: 100 mls/hr Gentamicin Sulfate 60 mg/ (Sodium Chloride) 51.5 mls @ 101.5 mls/hr IVPB Q8H [facility] Last Admin: 04/24/17 16:55 Dose: 101.5 mls/hr Methylprednisolone (Solu-Medrol) 20 mg IV Q12 [facility] Fluticasone/Salmeterol (Advair Diskus 250/50) 1 puff INH RQ12 [facility] Last Admin: 04/24/17 10:50 Dose: 1 puff - Labs Labs: 04/24/17 07:48 04/24/17 07:48 PT 13.2 SECONDS (9.7-12.2) H 04/20/17 13:15 INR 1.2 04/20/17 13:15 APTT 33 SECONDS (21-34) 04/20/17 13:15 Assessment and Plan (1) Lung mass Status: Acute (2) ILD (interstitial lung disease) Status: Acute (3) History of lupus Status: Chronic
--- NOTE | 2017-04-24 20:28 | PN ---
SUBJECTIVE: The patient is currently on one-to-one watch. She denies any palpitation or dizziness. PHYSICAL EXAMINATION VITAL SIGNS: Blood pressure 122/71, heart rate 85, temperature 97.6, and respirations 20. HEENT: Staring look. NECK: No JVD. CHEST: Clear. HEART: S1 and S2 regular. EXTREMITIES: No edema. LABORATORY DATA: Today's potassium 3.4, glucose 117, creatinine 0.6. The rest of SMA-7 is within normal limits. Today's hemoglobin, hematocrit, white count, and platelet count are within normal limits. ASSESSMENT: 1. Hyperthyroidism. 2. Questionable atrial flutter. 3. Altered mental status. 4. Lung mass. 5. Right hydroureter hydronephrosis. CONDITIONS: Continue current IV gentamicin and IV meropenem. Continue Solu-Medrol. Continue subcutaneous Lovenox at 44 mg twice a day unless there is no available documentation of the patient's atrial flutter on admission; then the patient should be switched to prophylactic and dose of subcutaneous Lovenox. Prasanna Bustillo MD
[2017-04-24] MEDS: MethylPREDNISolone 40 mg Vial IV SCH (21:55)
--- NOTE | 2017-04-24 23:00 | CARD ---
APPROVED REPORT EKG Measurement Heart [id number] <Conclusion> Sinus tachycardia Possible Left atrial enlargement Left axis deviation Septal infarct, age undetermined Abnormal ECG
--- NOTE | 2017-04-24 23:03 | CARD ---
APPROVED REPORT EKG Measurement Heart [id number] <Conclusion> Supraventricular tachycardia Left axis deviation Septal infarct, age undetermined Abnormal ECG
--- NOTE | 2017-04-24 23:23 | CP.PCM.PN ---
Subjective - Date & Time of Evaluation Date of Evaluation: 04/24/17 Time of Evaluation: 03:00 - Subjective Subjective: dictated Objective - Vital Signs/Intake and Output Vital Signs (last 24 hours): Temp Pulse Resp BP Pulse Ox 98.9 F 86 20 131/73 97 04/24/17 15:06 04/24/17 15:06 04/24/17 15:06 04/24/17 15:06 04/24/17 15:06 Intake and Output: 04/24/17 04/25/17 18:59 06:59 Intake Total 1300 700 Output Total 1000 800 Balance 300 -100 - Medications Medications: Current Medications Enoxaparin Sodium (Lovenox) 30 mg SC DAILY [facility] Famotidine (Pepcid) 20 mg IVP Q12 [facility] Last Admin: 04/24/17 21:56 Dose: 20 mg Sodium Chloride (Sodium Chloride 0.45%) 1,000 mls @ 100 mls/hr IV .Q10H [facility] Last Admin: 04/24/17 21:47 Dose: 100 mls/hr Meropenem 1 gm/ Sodium (Chloride) 100 mls @ 100 mls/hr IVPB Q8H [facility] Last Admin: 04/24/17 16:57 Dose: 100 mls/hr Gentamicin Sulfate 60 mg/ (Sodium Chloride) 51.5 mls @ 101.5 mls/hr IVPB Q8H [facility] Last Admin: 04/24/17 16:55 Dose: 101.5 mls/hr Methylprednisolone (Solu-Medrol) 20 mg IV Q12 [facility] Last Admin: 04/24/17 21:55 Dose: 20 mg Fluticasone/Salmeterol (Advair Diskus 250/50) 1 puff INH RQ12 [facility] Last Admin: 04/24/17 19:46 Dose: 1 puff - Labs Labs: 04/24/17 07:48 04/24/17 07:48 PT 13.2 SECONDS (9.7-12.2) H 04/20/17 13:15 INR 1.2 04/20/17 13:15 APTT 33 SECONDS (21-34) 04/20/17 13:15
[2017-04-25] MEDS: Meropenem 1 GM in Sodium Chloride 0.9% 100 ML IVPB SCH ×2 (02:00→08:32)
--- NOTE | 2017-04-25 03:03 | PN ---
DATE: SUBJECTIVE: Patient is afebrile. She is awake, alert. She knows she is in the hospital. Denies any complaints. PHYSICAL EXAMINATION: HEAD: Atraumatic and normocephalic. NECK: Supple. LUNGS: Clear. No crackles or rales present. Has few rhonchi. HEART: S1 and S2 is regular. ABDOMEN: Soft, nontender. No guarding, no rigidity present. EXTREMITIES: Have no edema, clubbing or cyanosis. LABORATORY DATA: Noted. Labs show white count is 8.9, hemoglobin 12, hematocrit 36.6, platelet count is 311. BUN is 17, creatinine 0.6, potassium is 3.4. IMPRESSION: She had right hydronephrosis. Dr. Villeda's note is missing. Would like to know Urology evaluation and Dr. Smith's note was noted. We will follow. She had Klebsiella pneumonia infection in the blood secondary to the urine and right hydronephrosis, has lupus as well as, and needs to be seen by the Mandarin [employer] Teacher and would repeat the blood culture. Denise Melton MD
[2017-04-25 07:30] LABS: HEMATOCRIT 38.6 % (34.0-47.0); LYMPH # 0.8 K/uL (1.0-4.3); LYMPH % 9.5 % (20.0-40.0); MEAN CELL VOLUME 92.3 fL (81.0-99.0); MEAN CORPUSCULAR HEMOGLOBIN 30.7 pg (27.0-31.0); MEAN CORPUSCULAR HGB CONC 33.2 g/dL (33.0-37.0); MEAN PLATELET VOLUME 8.6 fL (7.2-11.7); MONO # 0.3 K/uL (0.0-0.8); MONO % 3.4 % (0.0-10.0); PLATELET COUNT 354 K/uL (130-400); RED CELL DISTRIBUTION WIDTH 15.2 % (11.5-14.5); WHITE BLOOD COUNT 8.4 K/uL (4.8-10.8)
[2017-04-25 07:41] LABS: CHLORIDE 103 mmol/L (98-107)
[2017-04-25 07:42] LABS: POTASSIUM 3.8 mmol/L (3.6-5.2); SODIUM 142 mmol/L (132-148); T4 4.65 ug/dL (5.5-11.0)
[2017-04-25 07:44] LABS: ALB/GLOB RATIO 0.9 (1.0-2.1); AST/SGOT 27 U/L (14-36); BILIRUBIN,TOTAL 0.5 mg/dL (0.2-1.3); CARBON DIOXIDE 30 mmol/L (22-30); GFR AFRICAN-AMERICAN > 60; TOTAL PROTEIN 7.6 g/dL (6.3-8.3)
[2017-04-25 07:45] LABS: ALKALINE PHOSPHATASE 76 U/L (38-126); ALT/SGPT 26 U/L (9-52); BLOOD UREA NITROGEN 20 mg/dL (7-17); CALCIUM 8.4 mg/dl (8.6-10.4); GLUCOSE,RANDOM 111 mg/dL (65-105); MAGNESIUM 1.9 mg/dL (1.6-2.3); PHOSPHOROUS 2.4 mg/dL (2.5-4.5)
[2017-04-25 07:56] LABS: THYROID STIMULATING HORMONE 0.09 mIU/L (0.46-4.68)
[2017-04-25] MEDS: Sodium Chloride 0.45% 1,000 ML IV SCH (08:00)
--- NOTE | 2017-04-25 08:48 | CP.PCM.PN ---
Objective - Vital Signs/Intake and Output Vital Signs (last 24 hours): Temp Pulse Resp BP Pulse Ox 98.0 F 64 20 139/84 97 04/25/17 08:40 04/25/17 08:40 04/25/17 08:40 04/25/17 08:40 04/25/17 08:40 Intake and Output: 04/25/17 04/25/17 06:59 18:59 Intake Total 1600 Output Total 800 Balance 800 - Medications Medications: Current Medications Enoxaparin Sodium (Lovenox) 30 mg SC DAILY [facility] Famotidine (Pepcid) 20 mg IVP Q12 [facility] Last Admin: 04/24/17 21:56 Dose: 20 mg Sodium Chloride (Sodium Chloride 0.45%) 1,000 mls @ 100 mls/hr IV .Q10H [facility] Last Admin: 04/25/17 08:00 Dose: 100 mls/hr Meropenem 1 gm/ Sodium (Chloride) 100 mls @ 100 mls/hr IVPB Q8H [facility] Last Admin: 04/25/17 08:32 Dose: 100 mls/hr Gentamicin Sulfate 60 mg/ (Sodium Chloride) 51.5 mls @ 101.5 mls/hr IVPB Q8H [facility] Last Admin: 04/25/17 01:00 Dose: 101.5 mls/hr Methylprednisolone (Solu-Medrol) 20 mg IV Q12 [facility] Last Admin: 04/24/17 21:55 Dose: 20 mg Fluticasone/Salmeterol (Advair Diskus 250/50) 1 puff INH RQ12 [facility] Last Admin: 04/24/17 19:46 Dose: 1 puff - Labs Labs: 04/25/17 06:55 04/25/17 06:55 PT 13.2 SECONDS (9.7-12.2) H 04/20/17 13:15 INR 1.2 04/20/17 13:15 APTT 33 SECONDS (21-34) 04/20/17 13:15
[2017-04-25 09:03] LABS: NEUTROPHIL 89 % (50-75); TOTAL CELLS COUNTED 100
[2017-04-25] MEDS: MethylPREDNISolone 40 mg Vial IV SCH (09:33)
[2017-04-25] MEDS ORDERED: Enoxaparin 30 mg Syringe SC SCH (10:00)
[2017-04-25] MEDS: Fluticasone-Salmeterol 250-50mcg Diskus INH SCH (10:31)
--- NOTE | 2017-04-25 16:42 | CP.PCM.PN ---
Subjective - Date & Time of Evaluation Date of Evaluation: 04/25/17 Time of Evaluation: 16:39 - Subjective Subjective: Ms. Clements was seen and examined at bedside. She denies any headache, dizziness, weakness, nausea, lightheadedness. She verbalizes that she is being discharged today. There was no untoward events overnight. Objective - Vital Signs/Intake and Output Vital Signs (last 24 hours): Temp Pulse Resp BP Pulse Ox 98.0 F 90 20 139/84 97 04/25/17 08:40 04/25/17 15:41 04/25/17 08:40 04/25/17 08:40 04/25/17 08:40 Intake and Output: 04/25/17 04/25/17 06:59 18:59 Intake Total 1600 1200 Output Total 800 Balance 800 1200 - Medications Medications: Current Medications Enoxaparin Sodium (Lovenox) 30 mg SC DAILY [facility] Last Admin: 04/25/17 09:26 Dose: 30 mg Famotidine (Pepcid) 20 mg IVP Q12 [facility] Last Admin: 04/25/17 09:33 Dose: 20 mg Sodium Chloride (Sodium Chloride 0.45%) 1,000 mls @ 100 mls/hr IV .Q10H [facility] Last Admin: 04/25/17 08:00 Dose: 100 mls/hr Meropenem 1 gm/ Sodium (Chloride) 100 mls @ 100 mls/hr IVPB Q8H [facility] Last Admin: 04/25/17 08:32 Dose: 100 mls/hr Gentamicin Sulfate 60 mg/ (Sodium Chloride) 51.5 mls @ 101.5 mls/hr IVPB Q8H [facility] Last Admin: 04/25/17 09:33 Dose: 101.5 mls/hr Methylprednisolone (Solu-Medrol) 20 mg IV Q12 [facility] Last Admin: 04/25/17 09:33 Dose: 20 mg Fluticasone/Salmeterol (Advair Diskus 250/50) 1 puff INH RQ12 [facility] Last Admin: 04/25/17 10:31 Dose: 1 puff - Labs Labs: 04/25/17 06:55 04/25/17 06:55 PT 13.2 SECONDS (9.7-12.2) H 04/20/17 13:15 INR 1.2 04/20/17 13:15 APTT 33 SECONDS (21-34) 04/20/17 13:15 - Constitutional Appears: Well - Head Exam Head Exam: ATRAUMATIC, NORMAL INSPECTION, NORMOCEPHALIC - Eye Exam Eye Exam: EOMI, Normal appearance, PERRL - ENT Exam ENT Exam: Mucous Membranes Moist, Normal Exam - Neurological Exam Neurological Exam: Alert, Awake, CN II-XII Intact, Oriented x3 Neuro motor strength exam: Left Upper Extremity: 5, Right Upper Extremity: 5, Left Lower Extremity: 5, Right Lower Extremity: 5 Additional comments: Neurological unchanged from previous examination. Assessment and Plan (1) UTI (urinary tract infection) Assessment & Plan: Case discussed with Dr. Mccoy, no new recommendation from neurology, but continue medical treatments. Status: Resolved
[2017-04-25 16:50] VITALS: BP 129/73; PULSE 86; RESP 18; TEMP 97.6; O2SAT 96
--- NOTE | 2017-04-25 17:07 | CP.PCM.DIS ---
<Bhavna Tate - Last Filed: 04/25/17 18:28> Provider - Provider Date of Admission: 04/20/17 17:07 Attending physician: Faizan Ledesma DO Time Spent in preparation of Discharge (in minutes): 40 Hospital Course - Lab Results Lab Results: Micro Results 04/20/17 14:10 Blood Blood Culture - Final Klebsiella Pneumoniae Ssp Pneu 04/20/17 14:10 Blood Gram Stain - Final 04/20/17 13:00 Blood Blood Culture - Final Klebsiella Pneumoniae Ssp Pneu 04/20/17 13:00 Blood Gram Stain - Final 04/20/17 20:00 Urine,Catheterized Urine Culture - Final Klebsiella Pneumoniae Ssp Pneu Most Recent Lab Values WBC 8.4 K/uL (4.8-10.8) 04/25/17 06:55 RBC 4.18 Mil/uL (3.80-5.20) 04/25/17 06:55 Hgb 12.8 g/dL (11.0-16.0) 04/25/17 06:55 Hct 38.6 % (34.0-47.0) 04/25/17 06:55 MCV 92.3 fL (81.0-99.0) 04/25/17 06:55 MCH 30.7 pg (27.0-31.0) 04/25/17 06:55 MCHC 33.2 g/dL (33.0-37.0) 04/25/17 06:55 RDW 15.2 % (11.5-14.5) H 04/25/17 06:55 Plt Count 354 K/uL (130-400) 04/25/17 06:55 MPV 8.6 fL (7.2-11.7) 04/25/17 06:55 Neut % (Auto) 87.1 % (50.0-75.0) H 04/25/17 06:55 Lymph % (Auto) 9.5 % (20.0-40.0) L 04/25/17 06:55 [place] % (Auto) 3.4 % (0.0-10.0) 04/25/17 06:55 Eos % (Auto) 0.0 % (0.0-4.0) 04/25/17 06:55 Baso % (Auto) 0.0 % (0.0-2.0) 04/25/17 06:55 Neut # 7.3 K/uL (1.8-7.0) H 04/25/17 06:55 Lymph # 0.8 K/uL (1.0-4.3) L 04/25/17 06:55 [place] # 0.3 K/uL (0.0-0.8) 04/25/17 06:55 Eos # 0.0 K/uL (0.0-0.7) 04/25/17 06:55 Baso # 0.0 K/uL (0.0-0.2) 04/25/17 06:55 Neutrophils % (Manual) 89 % (50-75) H 04/25/17 06:55 Band Neutrophils % 1 % (0-2) 04/24/17 07:48 Lymphocytes % (Manual) 9 % (20-40) L 04/25/17 06:55 Monocytes % (Manual) 2 % (0-10) 04/25/17 06:55 Platelet Estimate Normal (NORMAL) 04/25/17 06:55 Plt Clumps, EDTA Present 04/22/17 09:37 Large Platelets Present 04/24/17 07:48 RBC Morphology Normal 04/25/17 06:55 Hypochromasia (manual) Slight 04/23/17 07:19 Poikilocytosis (manual Slight 04/23/17 07:19 Anisocytosis (manual) Slight 04/23/17 07:19 Tear Drop Cells Slight 04/22/17 09:37 Ovalocytes Slight 04/22/17 09:37 PT 13.2 SECONDS (9.7-12.2) H 04/20/17 13:15 INR 1.2 04/20/17 13:15 APTT 33 SECONDS (21-34) 04/20/17 13:15 pO2 20 mm/Hg (30-55) L 04/20/17 13:05 VBG pH 7.39 (7.32-7.43) 04/20/17 13:05 VBG pCO2 44 mmHg (40-60) 04/20/17 13:05 VBG HCO3 24.1 mmol/L 04/20/17 13:05 VBG Total CO2 28.0 mmol/L (22-28) 04/20/17 13:05 VBG O2 Sat (Calc) 36.0 % (40-65) L 04/20/17 13:05 VBG Base Excess 1.2 mmol/L (0.0-2.0) 04/20/17 13:05 VBG Potassium 4.5 mmol/L (3.6-5.2) 04/20/17 13:05 Sodium 138.0 mmol/l (132-148) 04/20/17 13:05 Chloride 105.0 mmol/L (98-107) 04/20/17 13:05 Glucose 95 mg/dl (65-105) 04/20/17 13:05 Lactate 0.9 mmol/L (0.7-2.1) 04/20/17 13:05 Sodium 142 mmol/L (132-148) 04/25/17 06:55 Potassium 3.8 mmol/L (3.6-5.2) 04/25/17 06:55 Chloride 103 mmol/L (98-107) 04/25/17 06:55 Carbon Dioxide 30 mmol/L (22-30) 04/25/17 06:55 Anion Gap 13 (10-20) 04/25/17 06:55 BUN 20 mg/dL (7-17) H 04/25/17 06:55 Creatinine 0.7 MG/DL (0.7-1.2) 04/25/17 06:55 Est GFR ( Amer) > 60 04/25/17 06:55 Est GFR (Non-Af Amer) > 60 04/25/17 06:55 POC Glucose (mg/dL) 107 mg/dL (65-110) 04/25/17 11:51 Random Glucose 111 mg/dL (65-105) H 04/25/17 06:55 Hemoglobin A1c 6.1 % (4.2-6.5) 04/20/17 13:15 Calcium 8.4 mg/dl (8.6-10.4) L 04/25/17 06:55 Phosphorus 2.4 mg/dL (2.5-4.5) L 04/25/17 06:55 Magnesium 1.9 mg/dL (1.6-2.3) 04/25/17 06:55 Total Bilirubin 0.5 mg/dL (0.2-1.3) 04/25/17 06:55 AST 27 U/L (14-36) 04/25/17 06:55 ALT 26 U/L (9-52) 04/25/17 06:55 Alkaline Phosphatase 76 U/L (38-126) 04/25/17 06:55 Total Creatine Kinase 156 U/L (30-135) H 04/21/17 03:01 CK-MB (Mass) 0.62 ng/mL (0.0-3.38) 04/21/17 03:01 Troponin I 0.0160 ng/mL (0.00-0.120) 04/20/17 13:15 Troponin I, Quant 0.0510 ng/mL (0.00-0.120) 04/21/17 03:01 NT-Pro-B Natriuret Pep 892 pg/mL (0-900) 04/20/17 19:59 Total Protein 7.6 g/dL (6.3-8.3) 04/25/17 06:55 Albumin 3.5 g/dL (3.5-5.0) 04/25/17 06:55 Globulin 4.1 gm/dL (2.2-3.9) H 04/25/17 06:55 Albumin/Globulin Ratio 0.9 (1.0-2.1) L 04/25/17 06:55 Triglycerides 39 mg/dL (0-149) D 04/21/17 03:01 Cholesterol 88 mg/dL (0-199) 04/21/17 03:01 LDL Cholesterol Direct 39 mg/dL (0-129) 04/21/17 03:01 HDL Cholesterol 36 mg/dL (30-70) 04/21/17 03:01 Lipase 69 U/L (23-300) 04/20/17 13:15 Free T4 0.75 ng/dL (0.78-2.19) L 04/25/17 06:55 Thyroxine (T4) 4.65 ug/dL (5.5-11.0) L 04/25/17 06:55 TSH 3rd Generation 0.09 mIU/L (0.46-4.68) L 04/25/17 06:55 Venous Blood Potassium 4.5 mmol/L (3.6-5.2) 04/20/17 13:05 Urine Color Yellow (YELLOW) 04/20/17 13:44 Urine Clarity Hazy (Clear) 04/20/17 13:44 Urine pH 7.0 (5.0-8.0) 04/20/17 13:44 Ur Specific [place] 1.011 (1.003-1.030) 04/20/17 13:44 Urine Protein 1+ mg/dL (NEGATIVE) H 04/20/17 13:44 Urine Glucose (UA) Normal mg/dL (Normal) 04/20/17 13:44 Urine Ketones Trace mg/dL (NEGATIVE) 04/20/17 13:44 Urine Blood 3+ (NEGATIVE) H 04/20/17 13:44 Urine Nitrate Positive (NEGATIVE) H 04/20/17 13:44 Urine Bilirubin Negative (NEGATIVE) 04/20/17 13:44 Urine Urobilinogen Normal mg/dL (0.2-1.0) 04/20/17 13:44 Ur Leukocyte Esterase 3+ Carline/uL (Negative) H 04/20/17 13:44 Urine WBC (Auto) 179 /hpf (0-5) H 04/20/17 13:44 Urine RBC (Auto) 38 /hpf (0-3) H 04/20/17 13:44 Ur Squamous Epith Cells 5 /hpf (0-5) 04/20/17 13:44 Gentamicin Peak 4.2 ug/mL (5.0-8.0) L 04/24/17 19:40 Gentamicin Trough 1.6 ug/mL (0.0-0.9) H 04/24/17 17:00 Blood Type B POSITIVE 04/20/17 13:15 Antibody Screen Negative 04/20/17 13:15 - Hospital Course Hospital Course: HPI: Patient is an 86F with PMH of pulmonary fibrosis, lupus, and osteoporosis who presented to the ED with her daughter, Yaima, for AMS. History was obtained by Yaima. She says she found the patient this morning at 11:45 on the floor of their home, weak and diaphoretic. Patient was awake and alert but confused and asking to be helped to the bathroom because she needed to urinate. Patient's daughter says the patient has been having to go more frequently. Patient can usually ambulate without assistance per her daughter but she was unable to get herself to the bathroom without help. After this the daughter laid her in bed and said she began talking nonsense. She brought her to the ED when this happened and said since then her mother has improved about 80%. Patient's daughter says she only received 2 medications today. One was her levothyroxine and the other was flexeril. Patient received the flexeril after recent ER visit for b/l shoulder pain. The daughter gave it this morning because her mother was complaining of right flank/back pain. Patient admits to sore throat with cough productive of white phlegm which is not new to her 2/2 pulomary fibrosis. Patient also admits to back and joint pain due to osteoporosis. Patient sees her primary care doctor (Dr. Joe Mooney) monthly and has noted a weight loss of 3lbs/month recently as well as decreased appetite. Patient is currently having difficulty swallowing. Patient denies fever, chills, headache, dizziness, change in vision, abdominal pain, nausea, vomiting, diarrhea, blood in urine or stool, dysuria, leg swelling, recent illness or travel, or sick contacts. PMH: pulmonary fibrosis, lupus, osteoporosis, hypothyroidism Meds: * cyclobenzaprine 10 mg PO TID PRN * Levothyroxine 100 mcg PO QD * Memantine 10 mg PO BID * Hydroxycholorquine 200 mg PO QD * Folic acid 1 mg QD PSH: Cholecystectomy Allergies: NKDA FamHx: denies SocHx: Former smoker (2 pk/wk x30 yrs), denies alcohol and drug use Hospital Course: 04/20: Leukocytosis 11.2, 100.2 rectal temp on admission. Urology Dr. Villeda was consulted. Raines cath was placed. Zosyn 3.375mg Q6 and Vanco 1g QD started. MRI of the brain without contrast was ordered. Neurology Consult with Dr. Mccoy was placed. Carotid ECHO was ordered. Cardiology Dr. Bustillo was consulted due to a-flutter on admission. Lovenox 44 mg SC Q12 was started. Solumedrol 125 x1 and then 40 Q8 and Advair were ordered for pulmonary fibrosis. 04/21: Urine culture is prelimanry gram negative growth. Changed IV abx to also include Primaxin IV Q6hrs. Her bladder showed a lot of urinary retention yesterday and a follow was started. Solumedrol was changed to 40mg BID. 04/22: Patient was oriented x3; speaking in full sentences in Urdu. Urine culture and blood culture showed Klebsiella Pneumoniae. Chest x-ray: Extensive diffuse interstitial infiltrate with sahara consolidation in right apex common nonspecific. Consider correlation with chest CT examination. Chest/Abdomen/Pelvis CT: 1. Solid mass right upper lobe. 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 Separate tumor burden in the right hilum and mediastinum difficult to further characterize in the absence of intravenous contrast. 2. Right upper lobe pneumonitis. 3. Moderate -severe interstitial lung disease primarily honeycombing. Underlying findings suggestive of bronchiectasis also identified. 4. Unilateral, right hydronephrosis, hydroureter. Markedly distended urinary bladder with solitary intraluminal bladder calculus. Additional benign and/or incidental findings described above. Intervential Radiology Dr. Cedeno was consulted and recommended outpatient biopsy of the lung mass. MRI brain without contrast: Somewhat limited study due patient's motion; No evidence of acute intracranial hemorrhage mass effect or midline shift. No evidence of acute or subacute infarction. Mild volume loss. Head CT: Normal CT of the head. No evidence of acute infarct. No intracranial hemorrhage. No intracranial mass. 04/23: Carotid echo: Right and Left internal carotid: Normal. Raines removed; patient urinating on her own without difficulty. 04/24: Repeat blood and urine culture. Patient oriented x3; speaking in full sentences in Urdu. Patient is stable for discharge home today per Dr. Ledesma. Discussed with granddaughter, Lupe, that patient will need antibiotics for treatment of urinary tract infection. Per family discussion, they do not want aggressive intervention, including chemotherapy and radiation for lung lesion. Family is aware of lung lesion and states prior work up at [facility]. Family aware that biopsy of lesion is recommended. Patient is to stop taking Synthroid until follow up with her primary doctor, Dr. Branham, as her TSH levels are very low. Patient should follow up with Dr. Branham within the next week. Patient should return to the ER if her symptoms reoccur or worsen. This was explained to patient and family who understand and agree. This is a brief summary of events. For a complete course, refer to the medical record. Discharge Exam - Head Exam Head Exam: ATRAUMATIC, NORMAL INSPECTION, NORMOCEPHALIC Discharge Plan - Discharge Medications Prescriptions: Ciprofloxacin HCl [Cipro] 250 mg PO BID #14 tablet - Follow Up Plan Condition: GOOD Disposition: HOME/ ROUTINE Instructions: Atrial Flutter (DC), Urinary Tract Infection in Women (DC), Heart Healthy Diet (DC), Altered Mental Status (GEN) Additional Instructions: Patient is stable for discharge home today per Dr. Ledesma. Discussed with granddaughter, Lupe, that patient will need antibiotics for treatment of urinary tract infection. Per family discussion, they do not want aggressive intervention, including chemotherapy and radiation for lung lesion. Family is aware of lung lesion and states prior work up at [facility]. Family aware that biopsy of lesion is recommended. Patient is to stop taking synthroid until follow up with her primary doctor, Dr. Branham, as her TSH levels are very low. Patient should follow up with Dr. Branham within the next week. Patient should return to the ER if her symptoms reoccur or worsen. This was explained to patient and family who understand and agree. Referrals: Joe Branham MD [Staff Provider] - <Faizan Ledesma - Last Filed: 04/26/17 09:32> Provider - Provider Date of Admission: 04/20/17 17:07 Attending physician: Faizan Ledesma, Hospital Course - Lab Results Lab Results: Micro Results 04/25/17 07:20 Blood-Venous Blood Culture - Preliminary NO GROWTH AFTER 24 HOURS 04/25/17 06:30 Blood-Venous Blood Culture - Preliminary NO GROWTH AFTER 24 HOURS 04/20/17 14:10 Blood Blood Culture - Final Klebsiella Pneumoniae Ssp Pneu 04/20/17 14:10 Blood Gram Stain - Final 04/20/17 13:00 Blood Blood Culture - Final Klebsiella Pneumoniae Ssp Pneu 04/20/17 13:00 Blood Gram Stain - Final 04/20/17 20:00 Urine,Catheterized Urine Culture - Final Klebsiella Pneumoniae Ssp Pneu Most Recent Lab Values WBC 8.4 K/uL (4.8-10.8) 04/25/17 06:55 RBC 4.18 Mil/uL (3.80-5.20) 04/25/17 06:55 Hgb 12.8 g/dL (11.0-16.0) 04/25/17 06:55 Hct 38.6 % (34.0-47.0) 04/25/17 06:55 MCV 92.3 fL (81.0-99.0) 04/25/17 06:55 MCH 30.7 pg (27.0-31.0) 04/25/17 06:55 MCHC 33.2 g/dL (33.0-37.0) 04/25/17 06:55 RDW 15.2 % (11.5-14.5) H 04/25/17 06:55 Plt Count 354 K/uL (130-400) 04/25/17 06:55 MPV 8.6 fL (7.2-11.7) 04/25/17 06:55 Neut % (Auto) 87.1 % (50.0-75.0) H 04/25/17 06:55 Lymph % (Auto) 9.5 % (20.0-40.0) L 04/25/17 06:55 [place] % (Auto) 3.4 % (0.0-10.0) 04/25/17 06:55 Eos % (Auto) 0.0 % (0.0-4.0) 04/25/17 06:55 Baso % (Auto) 0.0 % (0.0-2.0) 04/25/17 06:55 Neut # 7.3 K/uL (1.8-7.0) H 04/25/17 06:55 Lymph # 0.8 K/uL (1.0-4.3) L 04/25/17 06:55 [place] # 0.3 K/uL (0.0-0.8) 04/25/17 06:55 Eos # 0.0 K/uL (0.0-0.7) 04/25/17 06:55 Baso # 0.0 K/uL (0.0-0.2) 04/25/17 06:55 Neutrophils % (Manual) 89 % (50-75) H 04/25/17 06:55 Band Neutrophils % 1 % (0-2) 04/24/17 07:48 Lymphocytes % (Manual) 9 % (20-40) L 04/25/17 06:55 Monocytes % (Manual) 2 % (0-10) 04/25/17 06:55 Platelet Estimate Normal (NORMAL) 04/25/17 06:55 Plt Clumps, EDTA Present 04/22/17 09:37 Large Platelets Present 04/24/17 07:48 RBC Morphology Normal 04/25/17 06:55 Hypochromasia (manual) Slight 04/23/17 07:19 Poikilocytosis (manual Slight 04/23/17 07:19 Anisocytosis (manual) Slight 04/23/17 07:19 Tear Drop Cells Slight 04/22/17 09:37 Ovalocytes Slight 04/22/17 09:37 PT 13.2 SECONDS (9.7-12.2) H 04/20/17 13:15 INR 1.2 04/20/17 13:15 APTT 33 SECONDS (21-34) 04/20/17 13:15 pO2 20 mm/Hg (30-55) L 04/20/17 13:05 VBG pH 7.39 (7.32-7.43) 04/20/17 13:05 VBG pCO2 44 mmHg (40-60) 04/20/17 13:05 VBG HCO3 24.1 mmol/L 04/20/17 13:05 VBG Total CO2 28.0 mmol/L (22-28) 04/20/17 13:05 VBG O2 Sat (Calc) 36.0 % (40-65) L 04/20/17 13:05 VBG Base Excess 1.2 mmol/L (0.0-2.0) 04/20/17 13:05 VBG Potassium 4.5 mmol/L (3.6-5.2) 04/20/17 13:05 Sodium 138.0 mmol/l (132-148) 04/20/17 13:05 Chloride 105.0 mmol/L (98-107) 04/20/17 13:05 Glucose 95 mg/dl (65-105) 04/20/17 13:05 Lactate 0.9 mmol/L (0.7-2.1) 04/20/17 13:05 Sodium 142 mmol/L (132-148) 04/25/17 06:55 Potassium 3.8 mmol/L (3.6-5.2) 04/25/17 06:55 Chloride 103 mmol/L (98-107) 04/25/17 06:55 Carbon Dioxide 30 mmol/L (22-30) 04/25/17 06:55 Anion Gap 13 (10-20) 04/25/17 06:55 BUN 20 mg/dL (7-17) H 04/25/17 06:55 Creatinine 0.7 MG/DL (0.7-1.2) 04/25/17 06:55 Est GFR ( Amer) > 60 04/25/17 06:55 Est GFR (Non-Af Amer) > 60 04/25/17 06:55 POC Glucose (mg/dL) 107 mg/dL (65-110) 04/25/17 11:51 Random Glucose 111 mg/dL (65-105) H 04/25/17 06:55 Hemoglobin A1c 6.1 % (4.2-6.5) 04/20/17 13:15 Calcium 8.4 mg/dl (8.6-10.4) L 04/25/17 06:55 Phosphorus 2.4 mg/dL (2.5-4.5) L 04/25/17 06:55 Magnesium 1.9 mg/dL (1.6-2.3) 04/25/17 06:55 Total Bilirubin 0.5 mg/dL (0.2-1.3) 04/25/17 06:55 AST 27 U/L (14-36) 04/25/17 06:55 ALT 26 U/L (9-52) 04/25/17 06:55 Alkaline Phosphatase 76 U/L (38-126) 04/25/17 06:55 Total Creatine Kinase 156 U/L (30-135) H 04/21/17 03:01 CK-MB (Mass) 0.62 ng/mL (0.0-3.38) 04/21/17 03:01 Troponin I 0.0160 ng/mL (0.00-0.120) 04/20/17 13:15 Troponin I, Quant 0.0510 ng/mL (0.00-0.120) 04/21/17 03:01 NT-Pro-B Natriuret Pep 892 pg/mL (0-900) 04/20/17 19:59 Total Protein 7.6 g/dL (6.3-8.3) 04/25/17 06:55 Albumin 3.5 g/dL (3.5-5.0) 04/25/17 06:55 Globulin 4.1 gm/dL (2.2-3.9) H 04/25/17 06:55 Albumin/Globulin Ratio 0.9 (1.0-2.1) L 04/25/17 06:55 Triglycerides 39 mg/dL (0-149) D 09/16/17 03:01 Cholesterol 88 mg/dL (0-199) 04/21/17 03:01 LDL Cholesterol Direct 39 mg/dL (0-129) 04/21/17 03:01 HDL Cholesterol 36 mg/dL (30-70) 04/21/17 03:01 Lipase 69 U/L (23-300) 04/20/17 13:15 Free T4 0.75 ng/dL (0.78-2.19) L 04/25/17 06:55 Thyroxine (T4) 4.65 ug/dL (5.5-11.0) L 04/25/17 06:55 TSH 3rd Generation 0.09 mIU/L (0.46-4.68) L 04/25/17 06:55 Venous Blood Potassium 4.5 mmol/L (3.6-5.2) 04/20/17 13:05 Urine Color Yellow (YELLOW) 04/20/17 13:44 Urine Clarity Hazy (Clear) 04/20/17 13:44 Urine pH 7.0 (5.0-8.0) 04/20/17 13:44 Ur Specific [place] 1.011 (1.003-1.030) 04/20/17 13:44 Urine Protein 1+ mg/dL (NEGATIVE) H 04/20/17 13:44 Urine Glucose (UA) Normal mg/dL (Normal) 04/20/17 13:44 Urine Ketones Trace mg/dL (NEGATIVE) 04/20/17 13:44 Urine Blood 3+ (NEGATIVE) H 04/20/17 13:44 Urine Nitrate Positive (NEGATIVE) H 04/20/17 13:44 Urine Bilirubin Negative (NEGATIVE) 04/20/17 13:44 Urine Urobilinogen Normal mg/dL (0.2-1.0) 04/20/17 13:44 Ur Leukocyte Esterase 3+ Carline/uL (Negative) H 04/20/17 13:44 Urine WBC (Auto) 179 /hpf (0-5) H 04/20/17 13:44 Urine RBC (Auto) 38 /hpf (0-3) H 04/20/17 13:44 Ur Squamous Epith Cells 5 /hpf (0-5) 04/20/17 13:44 Gentamicin Peak 4.2 ug/mL (5.0-8.0) L 04/24/17 19:40 Gentamicin Trough 1.6 ug/mL (0.0-0.9) H 04/24/17 17:00 Blood Type B POSITIVE 04/20/17 13:15 Antibody Screen Negative 04/20/17 13:15 Attending/Attestation - Attestation I have personally seen and examined this patient.: Yes I have fully participated in the care of the patient.: Yes I have reviewed all pertinent clinical information, including history, physical exam and plan: Yes Notes (Text): 04/26/17 09:26 Medical Attending: Patient was seen and examined by me. Agree with the above note by the resident I spoke over the phone with the patient's grand daughter and they are trying to bring her to [place] and later she will be returning to [place]. Patient is walking on her own now, and not in any acute distress. She will need to continue previous medication however hold the levothyroxin for a little bit until they can follow up with her primary physician. The patient's family was also made aware of the righ lung lesion - they explain to me that even if a biopsy were to be done and it did show a malignancy that they would opt to not get chemo or radiation or surgery. On exam we had her walk around with us in the hallway - she was able to do so on her own without assistance. She denied having chest pain or palpitations or shortness of breath, or dizzyness when she was walking with us. We walked her out to the telemetry area, per review of the tele monitor was in NSR at that time thank you Faizan Ledesma
--- NOTE | 2017-04-25 19:44 | PN ---
ENDO FOLLOWUP NOTE DATE: LOCATION: In room 668. SUBJECTIVE: This is an 86-year-old female with acute excerebration of COPD, currently on IV steroid therapy and is now also being followed closely for metabolic management. Her glycemic levels are fluctuating, but much improved at this time and the latest glucose levels have ranged from 107 to 127 and 135 mg/dL. Her latest chemistry showed a BUN of 20, sodium 142, potassium 3.8, chloride 103, CO2 of 30, glucose 111 and creatinine 0.7. She also has a significant history of hypothyroidism previously on levothyroxine given as 100 mcg once daily as ordered. At this time, she remains clinically euthyroid and biochemically has evidence of TSH suppression most likely related to over replacement therapy with a superimposed TSH suppression from the intercurrent IV steroids therapy as given with an acute sick euthyroid component thereof. The repeat thyroid studies showed a thyroxine level of 4.65 with a free T4 of 0.75 and TSH of 0.09. So at this time, we will hold off the resumption of the levothyroxine replacement therapy to allow for therapeutic wash out, which will be almost closed to a week from 5-7 days or so. We will repeat the thyroid studies and determine the need to restart her levothyroxine replacement therapy as indicated. We will follow. Ban Azevedo MD
--- NOTE | 2017-04-25 22:00 | PN ---
SUBJECTIVE: The patient denies any palpitation, dizziness, or poor appetite. The patient denies any diarrhea. I did review the rhythm strips and the EKG and I did not see any documentation for atrial flutter, and most likely *------* in the emergency room was sinus tachycardia. I discontinued therapeutic Lovenox and replaced it with 80 mg of subcutaneous Lovenox daily for DVT prevention. PHYSICAL EXAMINATION VITAL SIGNS: Blood pressure 139/84, heart rate 64, temperature 98, respirations 20. HEENT: Starring look. NECK: No JVD. CHEST: Clear. HEART: S1 and S2, regular. EXTREMITIES: Significant muscle wasting. LABORATORY DATA: The SMA-7 is within normal limits except glucose 111 and BUN of 20, magnesium is 2.4. ASSESSMENT: 1. Hyperthyroidism. 2. Lung mass. 3. Right hydronephrosis and hydroureter. 4. Bladder calculus. 5. Interstitial lung disease. SUGGESTION: Continue current IV meropenem and IV gentamicin. Continue subcutaneous Lovenox 30 mg once a day, half normal saline 100 cc/hour, Solu-Medrol 20 mg intravenous twice a day. Prasanna Bustillo MD
--- NOTE | 2017-04-26 00:56 | CARD ---
APPROVED REPORT EXAM: Two-dimensional and M-mode echocardiogram with Doppler and color Doppler. Other Information Quality : GoodRhythm : NSR INDICATION lupus, tachycardia RISK FACTORS Hypertension M-Mode DIMENSIONS RVDd0.88 (2.1-3.2cm)Left Atrium (MM)4.00 (2.5-4.0cm) IVSd1.17 (0.7-1.1cm)Aortic Root2.68 (2.2-3.7cm) LVDd4.32 (4.0-5.6cm)Aortic Cusp Exc.1.33 (1.5-2.0cm) PWd1.17 (0.7-1.1cm)FS (%) 39 % LVDs2.62 (2.0-3.8cm)LVEF (%)70 (>50%) Mitral Valve MV E Eadxjcxw02.9cm/sMV A Vyltbneq92.4cm/sE/A ratio1.1 TDI E/Lateral E'0.0E/Medial E'0.0 Tricuspid Valve TR Peak Nnrcukxw324ia/sTR Peak Gr.[id number] LEFT VENTRICLE The left ventricle is normal size. There is mild concentric left ventricular hypertrophy. The left ventricular function is normal. The left ventricular ejection fraction is within the normal range. There is normal LV segmental wall motion. Transmitral Doppler flow pattern is Grade II-pseudonormal filling dynamics. RIGHT VENTRICLE The right ventricle is normal size. There is normal right ventricular wall thickness. The right ventricular systolic function is normal. ATRIA The left atrium is mildly dilated. The right atrium is mildly dilated. The interatrial septum is intact with no evidence for an atrial septal defect. AORTIC VALVE The aortic valve is mildly sclerotic. The aortic valve is calcified but opens well. No aortic regurgitation is present. There is no aortic valvular stenosis. There is no aortic valvular vegetation. MITRAL VALVE Mitral annular calcification is mild. There is no evidence of mitral valve prolapse. There is no mitral valve stenosis. Mitral regurgitation is mild. TRICUSPID VALVE The tricuspid valve is normal in structure. There is mild tricuspid regurgitation. There is mild pulmonary hypertension. There is no tricuspid valve prolapse or vegetation. There is no tricuspid valve stenosis. PULMONIC VALVE There is trace to mild pulmonic valvular regurgitation. There is no pulmonic valvular stenosis. GREAT VESSELS The aortic root is normal in size. The ascending aorta is normal in size. The IVC is normal in size and collapses >50% with inspiration. PERICARDIAL EFFUSION There is no pericardial effusion. There is no pleural effusion. <Conclusion> Left ventricle: mild concentric thickening: normal; size: normal; overall ejection fraction: 70%: diastolic filling pressures: elevated Mitral valve: annulus: normal: leaflets: normal: excursion: normal; no significant trans-mitral gradient: no significant incompetence: left atrium: dilated Aortic valve: leaflets: normal: excursion: normal; no significant trans-aortic gradient: No significant incompetence: aortic root: normal Right sided Structures: Pulmonary valve: normal; no significant incompetence; Tricuspid valve: normal; no significant incompetence: Intra-cardiac hemodynamics: pulmonary systolic pressures: 45 mmHg; central venous pressures: normal No pericardial effusion
--- NOTE | 2017-04-26 01:00 | CARD ---
APPROVED REPORT EKG Measurement Heart [id number] <Conclusion> Sinus tachycardia Possible Left atrial enlargement Left axis deviation Anterior infarct, age undetermined Abnormal ECG
--- NOTE | 2017-04-26 09:31 | CON ---
DATE: 04/24/17 LOCATION: [address] [place] [address], Room 668. HISTORY OF PRESENT ILLNESS: This is an 86-year-old female with known history of hypothyroidism, previously on levothyroxine given 100 mcg daily. She is now being referred for evaluation of abnormal thyroid function studies. She also has significant history of pulmonary fibrosis with longstanding nicotine dependence with an incidental finding of a lung mass and is currently undergoing pulmonary workup and management of . PAST MEDICAL HISTORY: As mentioned above. History of hypothyroidism, on the above mentioned levothyroxine medication, which has been withheld since admission because of the abnormal reports as noted, history of systemic lupus, currently on hydroxychloroquine 400 mg daily, history of pulmonary fibrosis with underlying COPD and longstanding nicotine dependence, history of generalized osteoporosis, history of recent altered mental status with constitutional symptoms, progressive weight loss, osteoporosis. FAMILY HISTORY: Positive for hypertension and heart disease. SOCIAL HISTORY: The patient is a former smoker consuming 2 packs per day for about 30 years . REVIEW OF SYSTEMS: Admits to generalized body weakness with easy fatigability and tiredness and suboptimal energy level. Also admits to episodic bouts of dizziness and lightheadedness, worse on the day of admission. No chest pain or palpitations, but admits to progressive shortness of breath initially on exertion and then at the rest with paroxysmal nocturnal dyspnea. Her oral intake is very poor and suboptimal with nausea, dyspepsia, and episodic vomiting episode. There is no odynophagia or dysphagia complications. PHYSICAL EXAMINATION GENERAL: The patient is an average built female in no apparent distress. VITAL SIGNS: Blood pressure 140/85, pulse 100 beats per minute, temperature 98, respirations 20. Height is 5 feet 4 inches. Weight is 89 pounds. HEENT: Head is normocephalic. Eyes: Anicteric with pink conjunctivae. Funduscopy not possible at this time. Ear, nose and throat otherwise normal. NECK: Supple. Thyroid gland is normal size. No carotid bruits or any cervical adenopathy. CARDIOPULMONARY: Adynamic precordium. S1 and S2 is rapid and regular. LUNGS: Show scattered rhonchi. ABDOMEN: Flat and soft with positive bowel sounds. EXTREMITIES: No peripheral edema. Pulses are +2 bilaterally. LABORATORY DATA: Thyroid study showed T4 of 11.6, TSH of 0.02, . Chemistries showed a BUN of 17, sodium 141, potassium 3.4, chloride 102, CO2 28, glucose 117, creatinine 0.6. The glucose levels have ranged from 132 to 134 and 172 mg/dL. ASSESSMENT: This is an 86-year-old female with exacerbation of chronic obstructive pulmonary disease, and currently on intravenous steroid Seroquel with concomitant lung mass and bronchiectasis with significant history of hypothyroidism, currently off levothyroxine replacement therapy with evidence of thyroid over-replacement with a suppressed TSH and normal T4 levels are noted. Moreover, she has also intercurrent intravenous steroid therapy, which can contribute to TSH suppression with a superimposed acute sick euthyroid syndrome. PLAN OF MANAGEMENT: Underlying cardiopulmonary instability, we would safely and presently hold off on the levothyroxine medication for now. We will obtain serial chemistries and supplement accordingly as needed. We will also obtain serial thyroid studies with a total free T4 and TSH, we will repeat this tomorrow, and we will also obtain a thyroid peroxidase antibody, which will confirm and indicate the presence of underlying thyroid autoimmunity. We will determine the need to include her levothyroxine medications as indicated. We will follow this patient with you. Ban Azevedo MD
--- NOTE | 2017-04-26 13:14 | PQF SEPSIS ---
This form is a permanent part of the medical record To Faizan Ledesma. Patient with history of Pulmonary Fibrosis, Lupus, Osteoporosis Etc. who was presented to the ED after being found on the ground for weakness. Found to have UTI, atiral fiblillation/flutter. Blood and Urine culture was positive for Klebsiella Pneumoniae, patient was also with Altered mental status and dehydration on admission. Please clarify if SEPSIS was ruled in o ruled out. Thank you, Clarification of your documentation is requested to better reflect the severity of illness and intensity of treatment of your patient. Indicators present [X] Temp < 96.8 or > 100.4 [X] WBC count > 12,000/mm3 or <000/mm3 or 10% immature neutrophils [] Heart Rate > 90 [] Respiratory Rate > 20 [] Fever or hypothermia [] Chills [X] Positive blood cultures [] Hypotension [] Metabolic acidosis (Elevated lactate level, anion gap or reduced blood pH) [X] Acute confusion /Altered Mental Status [] Shock [] Other: [] Location in the medical record that reflects the above clinical findings: [] - Consult Ivette Viera -- septicemia secondary to UTI. Treatment Provided: [] PHYSICIAN'S RESPONSE YES THE PATIENT HAD SEPSIS Based on your medical judgment of the clinical indicators outlined above, are you treating this patient for a known or suspected: [] Sepsis / Septicemia Please specify organism if known [] [] SIRS (Systemic Inflammatory Response Syndrome) [] Severe Sepsis (Sepsis with Associated Organ Dysfunction) [] Fever of Unknown Origin [] Other, please indicate: [] [] If Unable to Determine, please check the box, sign and date. Present On Admission (POA) Indicator: [] Present at the time of admission [] Not present at the time of admission [] Clinically Undetermined In responding to this query, please exercise your independent professional judgment. The fact that a question is asked does not imply that any particular answer is desired or expected. Thank you for your clarification on this documentation. If you have any questions please call:[ ] * Thank you, [ Gabrielle Lundberg, [facility] ] promotions assistant sales marketing [employer]
== END 2017-04-25 16:30 | disposition home or self-care (01) | DRG 871 ==
LOC: C.ER 12:30 → C.9E 17:07 → C.6T 20:22
PROVIDERS: ADMIT Hospitalist; ATTEND Hospitalist
DX: R65.20 Severe sepsis without septic shock (principal); J18.9 Pneumonia, unspecified organism; N39.0 Urinary tract infection, site not specified; J44.0 Chronic obstructive pulmonary disease with (acute) lower respiratory infection; J84.10 Pulmonary fibrosis, unspecified; N13.39 Other hydronephrosis; R13.10 Dysphagia, unspecified; F03.90 Unspecified dementia, unspecified severity, without behavioral disturbance, psychotic disturbance, mood disturbance, and anxiety; A41.59 Other Gram-negative sepsis; M32.9 Systemic lupus erythematosus, unspecified; M81.0 Age-related osteoporosis without current pathological fracture; Z86.711 Personal history of pulmonary embolism; Z79.01 Long term (current) use of anticoagulants; E03.9 Hypothyroidism, unspecified; Z87.891 Personal history of nicotine dependence; N21.0 Calculus in bladder; R33.9 Retention of urine, unspecified; I48.91 Unspecified atrial fibrillation; E87.6 Hypokalemia